=== PATIENT | female | born 1935 | race Caucasian/White ===

== ENCOUNTER 2017-07-09 13:44 | Inpatient (IN) ==
[2017-07-09 14:33] LABS: Basophils % 0.3 %; Eosinophils # 0.1 K/mcL (0.0-0.6); Eosinophils % 0.9 %; Hematocrit 35.8 % (35.3-44.9); Hemoglobin 11.7 g/dL (11.5-15.4); Immature Granulocytes % 0.5 % (0-4); Lymphocytes # 0.9 K/mcL (0.6-4.6); Lymphocytes % 9.1 %; Mean Corpuscular HGB Conc 32.7 g/dL (31.6-35.5); Mean Corpuscular Volume 94.7 fL (83.0-100.0); Mean Platelet Volume 9.5 fL (9.4-12.4); Monocytes # 0.6 K/mcL (0.0-1.3); Monocytes % 5.8 %; Neutrophils # 8.2 K/mcL (1.6-8.9); Platelet Count 394 K/mcL (140-400); Red Blood Count 3.78 M/mcL (3.82-4.97); Red Cell Distribution Width 13.3 % (11.5-14.5); Segmented Neutrophils % 83.4 %
--- NOTE | 2017-07-09 14:41 | Emergency Department Note ---
Disposition Clinical Impression: Pneumonia Qualifiers: Pneumonia type: due to unspecified organism Laterality: right Lung location: unspecified part of lung Qualified Code(s): J18.9 - Pneumonia, unspecified organism Chest pain Qualifiers: Chest pain type: unspecified Qualified Code(s): R07.9 - Chest pain, unspecified CKD (chronic kidney disease) Qualifiers: Chronic kidney disease stage: unspecified stage Qualified Code(s): N18.9 - Chronic kidney disease, unspecified Disposition: Home, Self-Care Condition: Fair SOB HPI - General Chief Complaint: ED Shortness of Breath/Dyspnea Stated Complaint: possible pneumonia Time Seen by Provider: 07/09/17 13:55 Source: patient, EMS Mode of arrival: ambulatory Limitations: no limitations Nursing Notes Reviewed: Yes Vital Signs Reviewed: Yes - History of Present Illness 81-year-old female with a history of COPD, hypertension, VT in the past with protein S deficiency since her evaluation of chest pain. Patient states that symptom onset was partially week ago. Notes lower chest pain worse with deep inspiration. States that she saw her primary care doctor approximately week ago his prescribed an antibiotic stating that she possibly had pneumonia. Patient states that she has 5 days and Levaquin with no benefit. No cough. No fevers. Patient has felt nauseous with vomiting. Patient states that her last INR was low. Patient denies any other symptoms. She reports that she has had her gallbladder removed. 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 - Related Data Home Medications Medication Instructions Recorded Confirmed HYDROcodone/Acet 10/325 mg [[place] 1 tab PO Q4HR PRN 07/09/17 07/10/17 10-325 mg] Levothyroxine [Synthroid] 50 mcg PO 0630 07/09/17 07/10/17 Losartan [Cozaar] 100 mg PO DAILY 07/09/17 07/10/17 Warfarin [Coumadin] 3 mg PO 1800 07/09/17 07/10/17 Citalopram Hydrobromide 1.5 tab PO DAILY 07/10/17 07/10/17 [Citalopram HBr] Meloxicam [Meloxicam] 1 tab PO BID 07/10/17 07/10/17 Metoprolol [Lopressor] 1.5 tab PO BID 07/10/17 07/10/17 levoFLOXacin [Levofloxacin] 1 tab PO DAILY 07/10/17 07/10/17 Allergies Allergy/AdvReac Type Severity Reaction Status Date / Time Erythromycin Base Allergy Mild Rash Verified 07/09/17 13:48 nitrofurantoin Allergy Mild Vomiting Verified 07/09/17 13:48 [From Macrobid] Oxycodone [From Percocet] Allergy Mild See Verified 07/09/17 13:48 Comments Sulfa (Sulfonamide Allergy Mild Hives Verified 07/09/17 13:48 Antibiotics) All systems ED: reviewed and negative except as stated. Constitutional: Reports: as per HPI. Denies: fever Eyes: Reports: as per HPI ENT ED: Reports: as per HPI Cardiovascular: Reports: as per HPI, chest pain Respiratory: Reports: as per HPI. Denies: cough, dyspnea Gastrointestinal: Reports: as per HPI, nausea, vomiting. Denies: abdominal pain Genitourinary: Reports: as per HPI Musculoskeletal: Reports: as per HPI Integumentary: Reports: as per HPI Neurological: Reports: as per HPI Psychiatric: Reports: as per HPI Endocrine: Reports: as per HPI Past Medical History - Past Medical History Medical history: Reports: COPD, fibromyalgia, hypertension, myocardial infarction, osteoporosis Surgical history: Reports: appendectomy, cholecystectomy, hysterectomy Psychiatric history: Reports: anxiety, depression MALTSTER history: Reports: no MALTSTER history - Social History Smoking Status: Former smoker Smokeless Tobacco Status: No Alcohol use: Reports: none Drug use: Reports: none Physical Exam - General Limitations: no limitations General appearance: alert, in no apparent distress - Head Head exam: atraumatic, normocephalic, normal inspection - Eye Eye exam: Present: normal appearance, EOMI - ENT ENT exam: normal exam, mucous membranes moist - Neck Neck exam: Present: normal inspection, trachea midline - Chest Chest inspection: Present: normal inspection, symmetric chest wall rise - Respiratory Respiratory exam: Present: normal lung sounds bilaterally. Absent: respiratory distress - Cardiovascular Cardiovascular exam: Present: normal rhythm, tachycardia. Absent: systolic murmur - Abdominal Exam Abdominal exam: Present: soft, Non-Tender. Absent: distention, guarding, rebound - Extremities Exam Extremities exam: Present: normal inspection. Absent: pedal edema - Back Exam Back exam: Present: normal inspection - Neurological Exam Neurological exam: Present: alert, oriented X3 - Skin Skin exam: Present: warm, dry, intact, normal color Course Course Narrative: Patient seen and examined. Patient appears enchondral. No respiratory distress. Patient is requiring 3 L nasal cannula. Patient states that she typically wears oxygen at night. Patient is tachycardic. Concerns of possible pulmonary embolism given the history as well as pleuritic component. Patient will get basic lab work chest x-ray and pain control. - Reevaluation(s) Reevaluation #1: Patient seen and examined. Patient appears to be resting comfortably. She was updated of plan of care. Time: 17:04 Vital Signs Pulse Rate 128 07/09/17 13:47 Respiratory Rate 24 07/09/17 13:47 Blood Pressure 136/96 07/09/17 13:47 O2 Sat by Pulse Oximetry 97 07/09/17 13:47 Temperature 98.2 F 07/10/17 11:10 Pulse Rate 120 07/10/17 11:10 Respiratory Rate 18 07/10/17 11:10 Blood Pressure 103/63 07/10/17 11:10 O2 Sat by Pulse Oximetry 96 07/10/17 11:10 Oxygen Delivery Oxygen Delivery Nasal Cannula Shortness of Breath/Dyspnea - [facility] Narrative Medical decision making narrative: 81-year-old female present for evaluation of chest pain and shortness of breath. Patient had a CT of the chest due to concerns of possible clotting given her history. Patient is on anticoagulation. Patient's CT of the chest reveals a possible pneumonia. Patient's been treated with Levaquin past with no significant benefit. Patient's labs reviewed. Patient will be admitted to hospital service for IV antibiotics and given to need monitoring. Patient does have chronic kidney disease and was hydrated - Lab Data Lab results reviewed: Yes I reviewed the patient's lab results. Result diagrams: 07/10/17 06:01 07/10/17 06:01 Lab Results 07/09/17 07/09/17 07/09/17 Range/Units 14:15 14:15 14:15 WBC 9.8 (4.3-11.1) K/mcL RBC 3.78 L (3.82-4.97) M/mcL Hgb 11.7 (11.5-15.4) g/dL Hct 35.8 (35.3-44.9) % MCV 94.7 (83.0-100.0) fL MCH 31.0 (28.0-33.3) pg MCHC 32.7 (31.6-35.5) g/dL RDW 13.3 (11.5-14.5) % Plt Count 394 (140-400) K/mcL MPV 9.5 (9.4-12.4) fL Immature Gran % 0.5 (0-4) % Seg Neutrophils % 83.4 % Lymphocytes % 9.1 % Monocytes % 5.8 % Eosinophils % 0.9 % Basophils % 0.3 % Neutrophils # 8.2 (1.6-8.9) K/mcL Lymphocytes # 0.9 (0.6-4.6) K/mcL Monocytes # 0.6 (0.0-1.3) K/mcL Eosinophils # 0.1 (0.0-0.6) K/mcL Basophils # 0.0 (0.0-0.2) K/mcL PT (9.4-12.1) Seconds INR Sodium (136-145) mEq/L Potassium (3.5-5.1) mEq/L Chloride (98-107) mEq/L Carbon Dioxide (23-29) mEq/L BUN (8-23) mg/dL Creatinine (0.60-1.20) mg/dL Est GFR ( Amer) (> 60) Est GFR (Non-Af Amer) (> 60) BUN/Creatinine Ratio (6-26) Glucose (70-105) mg/dL Calculated Osmolality (280-300) Lactic Acid (0.5-2.2) mmol/L Calcium (8.6-10.3) mg/dL Troponin I (< 0.04) ng/mL B-Natriuretic Peptide 92 (Less than 100) pg/mL Specimen Rejected Hemolyzed 07/09/17 07/09/17 07/09/17 Range/Units 14:45 14:45 14:45 WBC (4.3-11.1) K/mcL RBC (3.82-4.97) M/mcL Hgb (11.5-15.4) g/dL Hct (35.3-44.9) % MCV (83.0-100.0) fL MCH (28.0-33.3) pg MCHC (31.6-35.5) g/dL RDW (11.5-14.5) % Plt Count (140-400) K/mcL MPV (9.4-12.4) fL Immature Gran % (0-4) % Seg Neutrophils % % Lymphocytes % % Monocytes % % Eosinophils % % Basophils % % Neutrophils # (1.6-8.9) K/mcL Lymphocytes # (0.6-4.6) K/mcL Monocytes # (0.0-1.3) K/mcL Eosinophils # (0.0-0.6) K/mcL Basophils # (0.0-0.2) K/mcL PT (9.4-12.1) Seconds INR Sodium 135 L (136-145) mEq/L Potassium 4.5 (3.5-5.1) mEq/L Chloride 102 (98-107) mEq/L Carbon Dioxide 25 (23-29) mEq/L BUN 20 (8-23) mg/dL Creatinine 1.30 H (0.60-1.20) mg/dL Est GFR ( Amer) 48 L (> 60) Est GFR (Non-Af Amer) 39 L (> 60) BUN/Creatinine Ratio 15 (6-26) Glucose 102 (70-105) mg/dL Calculated Osmolality 283 (280-300) Lactic Acid 0.8 (0.5-2.2) mmol/L Calcium 9.1 (8.6-10.3) mg/dL Troponin I < 0.03 (< 0.04) ng/mL B-Natriuretic Peptide (Less than 100) pg/mL Specimen Rejected 07/09/17 Range/Units 14:45 WBC (4.3-11.1) K/mcL RBC (3.82-4.97) M/mcL Hgb (11.5-15.4) g/dL Hct (35.3-44.9) % MCV (83.0-100.0) fL MCH (28.0-33.3) pg MCHC (31.6-35.5) g/dL RDW (11.5-14.5) % Plt Count (140-400) K/mcL MPV (9.4-12.4) fL Immature Gran % (0-4) % Seg Neutrophils % % Lymphocytes % % Monocytes % % Eosinophils % % Basophils % % Neutrophils # (1.6-8.9) K/mcL Lymphocytes # (0.6-4.6) K/mcL Monocytes # (0.0-1.3) K/mcL Eosinophils # (0.0-0.6) K/mcL Basophils # (0.0-0.2) K/mcL PT 23.7 H (9.4-12.1) Seconds INR 2.2 Sodium (136-145) mEq/L Potassium (3.5-5.1) mEq/L Chloride (98-107) mEq/L Carbon Dioxide (23-29) mEq/L BUN (8-23) mg/dL Creatinine (0.60-1.20) mg/dL Est GFR ( Amer) (> 60) Est GFR (Non-Af Amer) (> 60) BUN/Creatinine Ratio (6-26) Glucose (70-105) mg/dL Calculated Osmolality (280-300) Lactic Acid (0.5-2.2) mmol/L Calcium (8.6-10.3) mg/dL Troponin I (< 0.04) ng/mL B-Natriuretic Peptide (Less than 100) pg/mL Specimen Rejected - Radiology Data Radiology results reviewed: Yes I reviewed the patient's radiology results. Chest X-Ray 07/09/17 13:56 IMPRESSION: 1. No acute cardiopulmonary findings. 2. A 1.6 cm nodular opacity in the right lateral mid to lower lung not well seen on the prior exam with some more linear opacity more inferiorly. Consider further evaluation with CT. 3. Chronic peripheral reticular opacities likely reflecting underlying fibrosis or interstitial lung process. D/ / 07/09/2017 14:41:57 Sandie Avila MD / bcarter Interpreting Provider: Sandie Avila MD - EKG Data EKG attestation: Yes I reviewed and interpreted this EKG. EKG shows normal: Reports: sinus rhythm Rate: Reports: tachycardia Rhythm: Reports: NSR [place]/QRS: Reports: normal Q waves: Reports: v1, v2 When compared to previous EKG there are: no significant changes Interpretation: Reports: unchanged when compared to prior tracing (date) S.B.A.R. - S.B.A.R. Situation: Demographics Background: Presenting Complaint Assessment: Vital Signs, Course and respsone to treatment, Patient/Family Expectation Recommendation: Barrier(s) to disposition, Recommendation based on pending studies, treatments, or consults Jamie Report Given to: Dr. Caitlin Ayala Repor Time: 17:03 Attestation Statement - Attestation Attestation: I examined this patient and my medical decision-making was reviewed with the Resident Physician. I agree with the documented findings, disposition and treatment plan as described except to the extent set forth below. 81 yo F BIB EMS with concerns of CP and SOB. 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 CT chest does not show PE but does show possible pna. Pt started on Abx and admitted for further care and eval.
[2017-07-09] MEDS ORDERED: 0.9 % Sodium Chloride 1,000 ML IVC ONE (14:46)
[2017-07-09] MEDS ORDERED: *HR* Morphine 2 MG/ML SYRINGE IVP ONE (14:53)
[2017-07-09] MEDS ORDERED: Ondansetron 4 MG/2 ML VIAL IVP ONE (14:53)
[2017-07-09 15:05] LABS: Calcium 9.1 mg/dL (8.6-10.3); Potassium 4.5 mEq/L (3.5-5.1)
[2017-07-09 15:11] LABS: INR 2.2; Prothrombin Time 23.7 Seconds (9.4-12.1)
[2017-07-09] MEDS ORDERED: Vancomycin 500 MG in D5% in Water 250 ML IVPB ONE (16:47)
[2017-07-09] MEDS ORDERED: Piperacillin/Tazobactam 3.375 GM in Water for inj. (sterile) 20 ML IVP ONE (16:48)
[2017-07-09] MEDS ORDERED: Naloxone 0.4 MG/ML INJ IVP PRN (20:34)
--- NOTE | 2017-07-09 20:47 | Internal Med History&Physical ---
<Carlos A Gotti J - Last Filed: 07/09/17 20:43> Date of Encounter: 07/09/17 Time of Encounter: 20:43 Assessment and Plan (1) Pneumonia Current visit: Yes Status: Acute Failed outpatient treatment for PNA. Presents today with dyspnea, chest pressure and chills. Was recently seen by PCP and diagnosed with PNA and treated with oral ATB (she is unsure which ATB either levaquin or augmentin). She denies any respiratory distress at this time and is resting comfortably on 2L NC. All vitals stable -start Vanc and Zosyn with failed outpatient treatment- narrow as clinically appropriate -obtain sputum culture -Continuous tele, and spo2 monitoring -Continuous respiratory support per NC, titrate to maintain spo2 >92% -CBCD, BMP in am -Duoneb q4h, albuterol q2h prn -prednisone 40mg dialy Qualifiers: Pneumonia type: due to unspecified organism Laterality: right Lung location: unspecified part of lung Qualified Code(s): J18.9 - Pneumonia, unspecified organism (2) Acute exacerbation of chronic obstructive pulmonary disease (COPD) Current visit: Yes Status: Acute (3) [id number] kidney injury Current visit: Yes Status: Acute Patient reports nausea and vomiting which began yesterday and extended into this morning. She has been able to tolerate oral intake due to nausea and vomiting which likely caused DEANNA. Gentle rehydration with IV fluids 0.9% normal saline at 75 mL per hour Qualifiers: Acute renal failure type: unspecified Chronic kidney disease stage: unspecified stage Qualified Code(s): N17.9 - Acute kidney failure, unspecified ; N18.9 - Chronic kidney disease, unspecified; N18.9 - Chronic kidney disease, unspecified (4) HTN (hypertension) Current visit: Yes Status: Acute History of hypertension. Systolic blood pressure in the 170s. Resume home antihypertensive medications. Start hydralazine 10 mg every 6 hours when necessary for SBP greater than 160 Qualifiers: Hypertension type: essential hypertension Qualified Code(s): I10 - Essential (primary) hypertension (5) Chest pain Current visit: Yes Status: Acute Qualifiers: Chest pain type: unspecified Qualified Code(s): R07.9 - Chest pain, unspecified Internal Medicine - H&P: HPI Chief complaint: chest pressure Admitted From: Home Plans for Post Hospital Care: Home History of present illness: Ms. Welch is a 81 year old female with a PMH of protein S deficiency, HTN, DC , COPD, aspergillosis in lungs, and osteoporosis. She presents to [facility] today with hypoxia, dyspnea, chest pressure, cough, and vomiting. She reports that the chest pressure and dyspnea has been going on for the last 5 days. The chest pressure is non-exertional, and without radiation. She reports that it is reproducible with inspiration. She reports seeing her PCP and was prescribed an oral ATB but is unsure which; she is thinking it is Levaquin or possibly Augmentin. She admits to chills, chest pressure, dyspnea, diaphoresis, and n/v. CT chest in ED reveals PNA in RLL as well as a 9mm spictulated nodule. Past Med Surg Social Fam HX - Past Medical History Medical history: COPD, fibromyalgia, hypertension, myocardial infarction, osteoporosis Psychiatric history: anxiety, depression - Past Surgical History Surgical History: appendectomy, cholecystectomy, hysterectomy - Social History Smoking Status: Former smoker Smokeless Tobacco Status: No Alcohol use: none Drug use: none - Additional Family History Additional family history: non-contributory Internal Medicine - H&P: Meds Citalopram [CeleXA] 40 mg PO DAILY 07/09/17 [History] HYDROcodone/Acet 10/325 mg [[place] 10-325 mg] 1 tab PO Q4HR PRN 07/09/17 [History ] Levothyroxine [Synthroid] 50 mcg PO 0630 07/09/17 [History] Losartan [Cozaar] 25 mg PO DAILY 07/09/17 [History] Warfarin [Coumadin] 3 mg PO 1800 07/09/17 [History] 3 Allergy/AdvReac Type Severity Reaction Status Date / Time Erythromycin Base Allergy Mild Rash Verified 07/09/17 13:48 nitrofurantoin Allergy Mild Vomiting Verified 07/09/17 13:48 [From Macrobid] Oxycodone [From Percocet] Allergy Mild See Verified 07/09/17 13:48 Comments Sulfa (Sulfonamide Allergy Mild Hives Verified 07/09/17 13:48 Antibiotics) All Systems PM: A 10-system review of systems was performed and is negative for pertinent findings except as documented above in the HPI. Review of systems: REVIEW OF SYSTEMS GENERAL: Negative for any fevers, or weight loss. Positive for N/V and chills NEUROLOGIC: Negative for any blurry vision, blind spots, double vision, facial asymmetry, dysphagia, dysarthria, hemiparesis, hemisensory deficits, vertigo, ataxia. HEENT: Negative for any head trauma, neck trauma, neck stiffness, photophobia, phonophobia, sinusitis, rhinitis. CARDIAC: Positive for chest pressure, dyspnea, diaphoresis, PULMONARY: Negative for any shortness of breath, wheezing, COPD, or TB exposure. GASTROINTESTINAL: Negative for any abdominal pain, nausea, vomiting, bright red blood per rectum, melena. GENITOURINARY: Negative for any dysuria, hematuria, incontinence. INTEGUMENTARY: Negative for any rashes, cuts, insect bites. RHEUMATOLOGIC: Negative for any joint pains, photosensitive rashes, history of vasculitis or kidney problems. HEMATOLOGIC: Negative for any abnormal bruising, frequent infections or bleeding. - Constitutional Vitals: Temp Pulse Resp BP Pulse Ox 97.7 F 94 18 171/84 99 07/09/17 19:30 07/09/17 19:30 07/09/17 19:30 07/09/17 19:30 07/09/17 19:30 General appearance: Present: cooperative, A&O X 3, no acute distress, answers questions appropriately - Head Head exam: Present: atraumatic, normocephalic - Neck Neck exam general surgery: Present: supple, trachea midline. Absent: lymphadenopathy - Respiratory Respiratory exam: Present: rhonchi (RLL ), wheezes (I&E wheezing BL lungs anterior and posterior). Absent: tachypnea - Cardiovascular Cardiovascular exam: Present: RRR, +S1, +S2. Absent: diastolic murmur, gallop, rubs, systolic murmur - GI/Abdominal GI/Abdominal exam: Present: normal bowel sounds, soft, no peritoneal signs. Absent: distended, tenderness - Extremities Exam Extremities exam: Present: warm, radial pulses palpable and symmetrical. Absent : calf tenderness, cyanotic, pedal edema - Neurological Exam Neurological exam: Present: alert, normal gait - Skin Skin exam: Present: dry, intact Internal Med - H&P Results - Labs CBC & Chem 7: 07/09/17 14:15 07/09/17 14:45 - EKG Data -: EKG Interpreted by Myself EKG shows normal: sinus rhythm Rate: tachycardia - Diagnostic Studies Chest x-ray Status: image reviewed by me Additional comments: 1. No acute cardiopulmonary findings. 2. A 1.6 cm nodular opacity in the right lateral mid to lower lung not well seen on the prior exam with some more linear opacity more inferiorly. Consider further evaluation with CT. 3. Chronic peripheral reticular opacities likely reflecting underlying fibrosis or interstitial lung process. CT scan - chest Status: image reviewed by me Additional comments: 1. No evidence of pulmonary embolic disease. 2. Moderately severe diffuse emphysematous changes. Focal subpleural opacification in the right lower lobe, increased compared to the previous study, likely representing an acute infectious or inflammatory process. Spiculated nodules measuring upwards of 9 mm is apparent and follow-up chest CT following therapy is recommended to ensure resolution. A follow-up CT in 3 months time would be reasonable. <Rosalind Lovett - Last Filed: 07/09/17 22:28> Date of Encounter: 07/09/17 Time of Encounter: 22:25 Internal Medicine - H&P: HPI History of present illness: Ms. Welch is a 81 year old female All Systems PM: A 10-system review of systems was performed and is negative for pertinent findings except as documented above in the HPI. - Constitutional Vitals: Temp Pulse Resp BP Pulse Ox 97.7 F 94 18 171/84 99 07/09/17 19:30 07/09/17 19:30 07/09/17 19:30 07/09/17 19:30 07/09/17 19:30 Internal Med - H&P Results - Labs CBC & Chem 7: 07/09/17 14:15 07/09/17 14:45 - Attending Attestation Patient is an 81y/o female admitted for acute respiratory distress secondary to RLL PNA and COPD exacerbation. Patient independently seen and examined at bedside. Resting comfortably in bed and saturating well on nasal cannula. Reports of being an every day smoker and is not read to quit at this time. Noted to be on oral abx for PNA however symptoms persisted which prompted her hospitalization Will continue broad spectrum IV abx, systemic steroids, bronchodilator support, O2 supplementation closely monitor O2 sat, goal O2 sat: 88-92% reports of not taking her antihypertensive medications at home, will restart home meds along with Hydralazine prn sbp>160 Reports of having protein S deficiency and on Coumadin for anticoagulation. INR within therapeutic range. Case discussed with YAQUELIN Gotti, I agree with his documented findings, assessment, and plan except as listed above
[2017-07-09] MEDS ORDERED: Vancomycin 500 MG in D5% in Water 250 ML IVPB SCH (21:00)
[2017-07-09] MEDS ORDERED: 0.9 % Sodium Chloride 1,000 ML IVC SCH (21:00)
[2017-07-09] MEDS: Ipratropium/Albuterol Neb 3 ML IH SCH ×2 (21:52→23:53)
[2017-07-09] MEDS: 0.9 % Sodium Chloride 1,000 ML IVC SCH (22:40)
[2017-07-09] MEDS: predniSONE 20 MG TABLET PO SCH (22:40)
[2017-07-09] MEDS ORDERED: Vancomycin 750 MG in D5% in Water 250 ML IVPB ONE (23:42)
[2017-07-10] MEDS ORDERED: MethylPREDNISolone 40 MG/ML VIAL IVP SCH
[2017-07-10] MEDS: Ipratropium/Albuterol Neb 3 ML IH SCH ×2 (03:30→08:18)
[2017-07-10] MEDS ORDERED: Piperacillin/Tazobactam 3.375 GM/200 ML BAG IVPB SCH (04:00)
[2017-07-10] MEDS: *HR* HYDROcodone/Acet 10/325 mg TABLET PO PRN ×3 (04:36→18:07)
[2017-07-10] MEDS: Ondansetron 4 MG/2 ML VIAL IVP PRN ×2 (04:37→18:07)
[2017-07-10] MEDS ORDERED: *HR* Morphine 2 MG/ML SYRINGE IVP ONE ×2 (05:11→05:31)
[2017-07-10] MEDS ORDERED: *HR* Morphine 2 MG/ML SYRINGE ONE (05:12)
[2017-07-10] MEDS ORDERED: *HR* Heparin 5,000 UNIT/ML VIAL SQ SCH (06:00)
[2017-07-10] MEDS ORDERED: *HR* Promethazine 25 MG/ML VIAL IVP ONE ×2 (06:23→06:34)
[2017-07-10] MEDS ORDERED: *HR* Promethazine 25 MG/ML VIAL ONE (06:23)
[2017-07-10 06:52] LABS: Calcium 8.8 mg/dL (8.6-10.3)
[2017-07-10 07:24] LABS: Hematocrit 34.7 % (35.3-44.9); Hemoglobin 11.1 g/dL (11.5-15.4); Mean Corpuscular Hemoglobin 30.8 pg (28.0-33.3); Mean Corpuscular Volume 96.4 fL (83.0-100.0); Mean Platelet Volume 9.9 fL (9.4-12.4); Platelet Count 367 K/mcL (140-400); Red Cell Distribution Width 13.3 % (11.5-14.5)
[2017-07-10] MEDS ORDERED: Vancomycin 500 MG in D5% in Water 250 ML IVPB SCH (09:00)
[2017-07-10 09:10] LABS: INR 2.1; Prothrombin Time 23.3 Seconds (9.4-12.1)
--- NOTE | 2017-07-10 09:39 | Electrocardiograph Report ---
[place] [id number] Test Date: 2017-07-09 Pat Name: Gloria Welch Department: 102 Room: 2A48 Gender: F Night Time Nanny: Emili : 1935 Requested By: Marcel Walker Order Number: [id number] Reading MD: Clement Small MD Measurements Intervals [place] Rate: 121 P: 74 WA: 153 QRS: 61 QRSD: 78 T: 64 QT: 318 QTc: 390 Interpretive Statements SINUS TACHYCARDIA BASELINE ARTIFACT Electronically Signed On 07-10-2017 9:37:22 EST by Clement Small MD
[2017-07-10] MEDS: predniSONE 20 MG TABLET PO SCH (09:50)
--- NOTE | 2017-07-10 10:02 | Internal Med Progress Note ---
Date of Encounter: 07/10/17 Time of Encounter: 09:59 - Assessment and plan (1) Acute exacerbation of chronic obstructive pulmonary disease (COPD) Status: Acute Assessment and plan: improved slightly. Continue IV steroids, empiric IV antibiotics, scheduled bronchodilators and supplemental oxygen as needed. Will change albuterol to levalbuterol due to persistent tachycardia. Patient does have home oxygen. Smoking cessation advised, patient will consider to cut down smoking. Declines nicotine transdermal patch in the hospital. (2) Pneumonia Status: Acute Assessment and plan: Chest x-ray shows possible right lower lobe pneumonia. Follow-up blood cultures. Continue broad-spectrum IV antibiotics. Supportive care and supplemental oxygen as needed. Lactic acid noted to be normal. Qualifiers: Pneumonia type: due to unspecified organism Laterality: right Lung location: lower lobe of lung Qualified Code(s): J18.1 - Lobar pneumonia, unspecified organism (3) Hypothyroidism Status: Chronic Assessment and plan: Continue levothyroxine. Qualifiers: Hypothyroidism type: unspecified Qualified Code(s): E03.9 - Hypothyroidism , unspecified (4) Chronic respiratory failure Status: Chronic Qualifiers: Respiratory failure complication: hypoxia Qualified Code(s): J96.11 - Chronic respiratory failure with hypoxia (5) Protein S deficiency Status: Chronic Assessment and plan: Noted to be on long-term anticoagulation with Coumadin. INR therapeutic. (6) Bfgnj-qn-wbbjexm kidney injury Status: Acute Assessment and plan: Improving. Likely related to underlying infection. Continue IV hydration for now. Qualifiers: Acute renal failure type: unspecified Chronic kidney disease stage: stage 3 (moderate) Qualified Code(s): N17.9 - Acute kidney failure, unspecified; N18.3 - Chronic kidney disease, stage 3 (moderate); N18.3 - Chronic kidney disease, stage 3 (moderate) (7) HTN (hypertension) Status: Chronic Qualifiers: Hypertension type: essential hypertension Qualified Code(s): I10 - Essential (primary) hypertension - Subjective Interval history: Reports improvement in chest tightness and shortness of breath; no palpitations , wheezing; does have some dyspnea and smoker's cough at baseline; continues to smoke 1 pack per day; no fever/chills; - Constitutional Vitals: Temp Pulse Resp BP Pulse Ox 97.4 F L 115 18 108/60 97 07/10/17 08:09 07/10/17 08:09 07/10/17 08:09 07/10/17 08:09 07/10/17 08:09 General appearance: Present: cachectic, cooperative, A&O X 3, no acute distress , answers questions appropriately - Respiratory Respiratory exam: Present: CTAB (coarse breath sounds B/L). Absent: accessory muscle use, rales, rhonchi, wheezes - Cardiovascular Cardiovascular exam: Present: RRR, +S1, +S2, tachycardia. Absent: diastolic murmur, gallop, rubs, systolic murmur - GI/Abdominal GI/Abdominal exam: Present: normal bowel sounds, soft, no peritoneal signs. Absent: distended, tenderness - Extremities Exam Extremities exam: Present: full ROM, warm, radial pulses palpable and symmetrical. Absent: calf tenderness, cyanotic, pedal edema - Neurological Exam Neurological exam: Present: CN II-XII intact, oriented X3, no focal deficits. Absent: pronater drift, facial droop, speech deficit - Skin Skin exam: Present: dry, intact Internal Medicine: Result - Labs CBC & Chem 7: 07/11/17 05:32 07/11/17 05:32 Labs: Short CBC 07/10/17 Range/Units 06:01 WBC 6.0 (4.3-11.1) K/mcL Hgb 11.1 L (11.5-15.4) g/dL Hct 34.7 L (35.3-44.9) % Plt Count 367 (140-400) K/mcL BMP 07/10/17 06:01 Sodium 135 L Potassium 4.0 Chloride 105 Carbon Dioxide 21 L BUN 18 Creatinine 1.11 Glucose 215 H Calcium 8.8 Cardiac Enzymes 07/10/17 Range/Units 06:01 Troponin I < 0.03 (< 0.04) ng/mL - ABG Interpretation ABG results: PT/INR, D-dimer PT 23.3 Seconds (9.4-12.1) H 07/10/17 08:46 Consult Discharge Plan - Plan Instructions: Pneumonia (DC) Additional Instructions: F/up with PCP in 1-2 weeks Referrals: Leonel Russo MD [Primary Care Provider] - Prescriptions: Ipratropium/Albuterol Neb [Duoneb] 3 ml IH Q6HR PRN 30 Days vial.neb PRN Reason: Shortness Of Breath/Wheezing Amoxicillin/Clavulanate [Augmentin] 500 mg PO BIDWM #10 tablet Budesonide/Formoterol 160/4.5 [Symbicort 160/4.5] 2 puff IH BIDR 30 Days hfa.aer.ad predniSONE [PredniSONE] 40 mg PO DAILY #10 tablet
--- NOTE | 2017-07-10 12:20 | Electrocardiograph Report ---
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
[2017-07-10] MEDS: 0.9 % Sodium Chloride 1,000 ML IVC SCH (14:53)
[2017-07-10] MEDS: Piperacillin/Tazobactam 3.375 GM/200 ML BAG IVPB SCH (15:21)
[2017-07-10] MEDS: Ipratropium Neb 0.5 MG NEBULIZER IH SCH ×3 (16:52→22:20)
[2017-07-10] MEDS: Levalbuterol Neb 1.25 MG/3 ML IH SCH ×3 (16:53→22:20)
[2017-07-10] MEDS ORDERED: Warfarin perPT PO PRN (18:00)
[2017-07-10] MEDS ORDERED: *HR* Warfarin 3 MG TABLET PO ONE (18:00)
[2017-07-10 18:49] LABS: Adenovirus Not Detected (Not Detect); Bordetella Pertussis Not Detected (Not Detect); Chlamydophila pneumoniae Not Detected (Not Detect); Coronavirus 229E Not Detected (Not Detect); Coronavirus HKU1 Not Detected (Not Detect); Coronavirus NL63 Not Detected (Not Detect); Coronavirus OC43 Not Detected (Not Detect); Human Metapneumovirus Not Detected (Not Detect); Human Rhinovirus/Enterovirus Not Detected (Not Detect); Influenza A Subtype 2009 H1 Not Detected (Not Detect); Influenza A Untypeable Not Detected (Not Detect); Influenza B Not Detected (Not Detect); Mycoplasma pneumoniae Not Detected (Not Detect); Parainfluenza Virus 1 Not Detected (Not Detect); Parainfluenza Virus 2 Not Detected (Not Detect); Parainfluenza Virus 3 Not Detected (Not Detect); Parainfluenza Virus 4 Not Detected (Not Detect); Respiratory Syncytial Virus Not Detected (Not Detect)
[2017-07-10] MEDS: Vancomycin 750 MG in D5% in Water 250 ML IVPB SCH (22:49)
[2017-07-11] MEDS: Piperacillin/Tazobactam 3.375 GM/200 ML BAG IVPB SCH ×3 (00:08→15:12)
[2017-07-11] MEDS ORDERED: Mag Hydrox/Al Hydrox/Simeth 30 ML UDC PO PRN (04:00)
[2017-07-11] MEDS: Levalbuterol Neb 1.25 MG/3 ML IH SCH ×4 (04:13→22:19)
[2017-07-11] MEDS: Ipratropium Neb 0.5 MG NEBULIZER IH SCH ×4 (04:13→22:19)
[2017-07-11 06:01] LABS: Basophils % 0.1 %; Eosinophils % 0.1 %; Hematocrit 29.7 % (35.3-44.9); Immature Granulocytes % 0.7 % (0-4); Lymphocytes # 1.4 K/mcL (0.6-4.6); Lymphocytes % 9.2 %; Mean Corpuscular HGB Conc 31.3 g/dL (31.6-35.5); Mean Corpuscular Hemoglobin 30.9 pg (28.0-33.3); Mean Corpuscular Volume 98.7 fL (83.0-100.0); Mean Platelet Volume 9.7 fL (9.4-12.4); Monocytes # 0.9 K/mcL (0.0-1.3); Monocytes % 6.2 %; Platelet Count 332 K/mcL (140-400); Red Blood Count 3.01 M/mcL (3.82-4.97); Red Cell Distribution Width 13.8 % (11.5-14.5); Segmented Neutrophils % 83.7 %
[2017-07-11 06:03] LABS: INR 2.3; Prothrombin Time 25.2 Seconds (9.4-12.1)
[2017-07-11 06:06] LABS: Hemoglobin 9.3 g/dL (11.5-15.4); Neutrophils # 12.6 K/mcL (1.6-8.9)
[2017-07-11 06:13] LABS: Calcium 8.5 mg/dL (8.6-10.3); Potassium 4.3 mEq/L (3.5-5.1)
[2017-07-11] MEDS: predniSONE 20 MG TABLET PO SCH (07:56)
[2017-07-11] MEDS: *HR* HYDROcodone/Acet 10/325 mg TABLET PO PRN ×3 (08:02→20:28)
[2017-07-11] MEDS: 0.9 % Sodium Chloride 1,000 ML IVC SCH ×2 (15:10→15:12)
[2017-07-11] MEDS ORDERED: *HR* Warfarin 2 MG TABLET PO ONE (18:00)
--- NOTE | 2017-07-11 18:12 | Internal Med Progress Note ---
Date of Encounter: 07/11/17 Time of Encounter: 12:40 - Assessment and plan (1) Acute exacerbation of chronic obstructive pulmonary disease (COPD) Status: Acute Assessment and plan: Improving. Continue to taper IV steroids, empiric IV antibiotics, scheduled bronchodilators and supplemental oxygen as needed. Leukocytosis is noted, likely due to use of IV steroids. Patient does have home oxygen. Smoking cessation advised, patient will consider to cut down smoking. Declines nicotine transdermal patch in the hospital. Physical and occupational therapy evaluation noted, recommend placement in inpatient rehabilitation. donor services manager on board. (2) Pneumonia Status: Acute Assessment and plan: Chest x-ray shows possible right lower lobe pneumonia. Follow-up blood cultures. Continue broad-spectrum IV antibiotics. Supportive care and supplemental oxygen as needed. Lactic acid noted to be normal. Qualifiers: Pneumonia type: due to unspecified organism Laterality: right Lung location: lower lobe of lung Qualified Code(s): J18.1 - Lobar pneumonia, unspecified organism (3) Hypothyroidism Status: Chronic Qualifiers: Hypothyroidism type: unspecified Qualified Code(s): E03.9 - Hypothyroidism , unspecified (4) Chronic respiratory failure Status: Chronic Qualifiers: Respiratory failure complication: hypoxia Qualified Code(s): J96.11 - Chronic respiratory failure with hypoxia (5) Protein S deficiency Status: Chronic (6) Jogmz-uw-ajfxvdv kidney injury Status: Acute Assessment and plan: Serum creatinine noted to be stable. Discontinue IV hydration. Qualifiers: Acute renal failure type: unspecified Chronic kidney disease stage: stage 3 (moderate) Qualified Code(s): N17.9 - Acute kidney failure, unspecified; N18.3 - Chronic kidney disease, stage 3 (moderate); N18.3 - Chronic kidney disease, stage 3 (moderate) (7) HTN (hypertension) Status: Chronic Assessment and plan: Blood pressure noted to be improving. Increase beta dickson. Heart rate better controlled today. Qualifiers: Hypertension type: essential hypertension Qualified Code(s): I10 - Essential (primary) hypertension - Subjective Interval history: Reports feeling better. Improved cough and shortness of breath. No fever, chills, nausea or vomiting. Able to participate in physical therapy. - Constitutional Vitals: Temp Pulse Resp BP Pulse Ox 97.9 F 113 18 108/45 92 07/11/17 15:39 07/11/17 15:39 07/11/17 16:22 07/11/17 15:39 07/11/17 16:22 General appearance: Present: cachectic, cooperative, A&O X 3, no acute distress , answers questions appropriately - Respiratory Respiratory exam: Present: CTAB, wheezes (Bilateral expiratory wheezing, improving). Absent: accessory muscle use, rales, rhonchi - Cardiovascular Cardiovascular exam: Present: RRR, +S1, +S2, tachycardia. Absent: diastolic murmur, gallop, rubs, systolic murmur - GI/Abdominal GI/Abdominal exam: Present: normal bowel sounds, soft, no peritoneal signs. Absent: distended, tenderness - Extremities Exam Extremities exam: Present: full ROM, warm, radial pulses palpable and symmetrical. Absent: calf tenderness, cyanotic, pedal edema Internal Medicine: Result - Labs CBC & Chem 7: 07/11/17 05:32 07/11/17 05:32 Labs: Short CBC 07/11/17 Range/Units 05:32 WBC 15.1 H D (4.3-11.1) K/mcL Hgb 9.3 L D (11.5-15.4) g/dL Hct 29.7 L (35.3-44.9) % Plt Count 332 (140-400) K/mcL Neutrophils # 12.6 H (1.6-8.9) K/mcL BMP 07/11/17 05:32 Sodium 138 Potassium 4.3 Chloride 109 H Carbon Dioxide 23 BUN 22 Creatinine 1.17 Glucose 131 H Calcium 8.5 L - ABG Interpretation ABG results: PT/INR, D-dimer PT 25.2 Seconds (9.4-12.1) H 07/11/17 05:32 Consult Discharge Plan - Plan Instructions: Pneumonia (DC) Additional Instructions: F/up with PCP in 1-2 weeks Referrals: Leonel Russo MD [Primary Care Provider] - Prescriptions: Ipratropium/Albuterol Neb [Duoneb] 3 ml IH Q6HR PRN 30 Days vial.neb PRN Reason: Shortness Of Breath/Wheezing Amoxicillin/Clavulanate [Augmentin] 500 mg PO BIDWM #10 tablet Budesonide/Formoterol 160/4.5 [Symbicort 160/4.5] 2 puff IH BIDR 30 Days hfa.aer.ad predniSONE [PredniSONE] 40 mg PO DAILY #10 tablet
[2017-07-11] MEDS: Vancomycin 750 MG in D5% in Water 250 ML IVPB SCH (22:32)
[2017-07-12] MEDS: Piperacillin/Tazobactam 3.375 GM/200 ML BAG IVPB SCH ×2 (00:05→08:11)
[2017-07-12] MEDS: Ondansetron 4 MG/2 ML VIAL IVP PRN (03:46)
[2017-07-12] MEDS: Levalbuterol Neb 1.25 MG/3 ML IH SCH ×2 (04:44→11:27)
[2017-07-12] MEDS: Ipratropium Neb 0.5 MG NEBULIZER IH SCH ×2 (04:44→11:27)
[2017-07-12 05:53] LABS: INR 1.9; Prothrombin Time 20.6 Seconds (9.4-12.1)
[2017-07-12] MEDS: predniSONE 20 MG TABLET PO SCH (08:11)
[2017-07-12] MEDS: 0.9 % Sodium Chloride 1,000 ML IVC SCH (10:45)
[2017-07-12 11:46] VITALS: BP 177/94
--- NOTE | 2017-07-12 13:06 | Discharge Summary ---
Date of Encounter: 07/12/17 Time of Encounter: 12:57 - Discharge Diagnosis (1) Acute exacerbation of chronic obstructive pulmonary disease (COPD) Priority: Primary Status: Acute (2) Pneumonia Priority: Primary Status: Acute Qualifiers: Pneumonia type: due to unspecified organism Laterality: right Lung location: lower lobe of lung Qualified Code(s): J18.1 - Lobar pneumonia, unspecified organism (3) Hypothyroidism Priority: Secondary Status: Chronic Qualifiers: Hypothyroidism type: unspecified Qualified Code(s): E03.9 - Hypothyroidism , unspecified (4) Chronic respiratory failure Priority: Secondary Status: Chronic Qualifiers: Respiratory failure complication: hypoxia Qualified Code(s): J96.11 - Chronic respiratory failure with hypoxia (5) Protein S deficiency Priority: Secondary Status: Chronic (6) Pmsgi-cc-djmveqv kidney injury Priority: Primary Status: Acute Qualifiers: Acute renal failure type: unspecified Chronic kidney disease stage: stage 3 (moderate) Qualified Code(s): N17.9 - Acute kidney failure, unspecified; N18.3 - Chronic kidney disease, stage 3 (moderate); N18.3 - Chronic kidney disease, stage 3 (moderate) (7) HTN (hypertension) Priority: Secondary Status: Chronic Qualifiers: Hypertension type: essential hypertension Qualified Code(s): I10 - Essential (primary) hypertension - Discharge Medications Prescriptions: Ipratropium/Albuterol Neb [Duoneb] 3 ml IH Q6HR PRN 30 Days vial.neb PRN Reason: Shortness Of Breath/Wheezing Amoxicillin/Clavulanate [Augmentin] 500 mg PO BIDWM #10 tablet Budesonide/Formoterol 160/4.5 [Symbicort 160/4.5] 2 puff IH BIDR 30 Days hfa.aer.ad predniSONE [PredniSONE] 40 mg PO DAILY #10 tablet Home Medications: HYDROcodone/Acet 10/325 mg [[place] 10-325 mg] 1 tab PO Q4HR PRN 07/09/17 [History ] Levothyroxine [Synthroid] 50 mcg PO 0630 07/09/17 [History] Losartan [Cozaar] 100 mg PO DAILY 07/09/17 [History] Warfarin [Coumadin] 3 mg PO 1800 07/09/17 [History] Citalopram Hydrobromide [Citalopram HBr] 1.5 tab PO DAILY 07/10/17 [History] Meloxicam 1 tab PO BID 07/10/17 [History] Metoprolol [Lopressor] 1.5 tab PO BID 07/10/17 [History] Amoxicillin/Clavulanate [Augmentin] 500 mg PO BIDWM #10 tablet 07/12/17 [Rx] Budesonide/Formoterol 160/4.5 [Symbicort 160/4.5] 2 puff IH BIDR 30 Days hfa.aer.ad 07/12/17 [Rx] Ipratropium/Albuterol Neb [Duoneb] 3 ml IH Q6HR PRN 30 Days vial.neb 07/12/17 [ Rx] predniSONE [PredniSONE] 40 mg PO DAILY #10 tablet 07/12/17 [Rx] Allergies/Adverse Reactions: 3 Allergy/AdvReac Type Severity Reaction Status Date / Time Erythromycin Base Allergy Mild Rash Verified 07/09/17 13:48 nitrofurantoin Allergy Mild Vomiting Verified 07/09/17 13:48 [From Macrobid] Oxycodone [From Percocet] Allergy Mild See Verified 07/09/17 13:48 Comments Sulfa (Sulfonamide Allergy Mild Hives Verified 07/09/17 13:48 Antibiotics) Procedures/tests Complete & Pending: Procedures Performed prior 72 hours Category Date Time Status EKG [ECG 12 lead ECG] [ECG] Stat Y 07/10/17 05:23 Completed Date of admission: 07/09/17 20:34 Primary care physician: Leonel Russo MD Consults: 07/09/17 21:22 Consult to Nutrition [CONS] Routine Comment: Consulting Provider: NUTRITION Reason for Dietary Consult: MST Score 07/10/17 11:03 Consult to Occupational Therapy [CONS] Routine Comment: Evaluate, develop and implement POC Reason for Consult: wkns Consult to Physical Therapy [CONS] Routine Comment: Evaluate, develop and implement POC Reason for Consult: wkns Discharging clinician: Ashli Cardenas Anticipated date of discharge: 07/12/17 - Patient Status Disposition: Home Health Service Condition: Fair Functional capacity at discharge: uses cane/walker Overall status at discharge: patient is progressing back to baseline - Discharge Instructions Instructions: Pneumonia (DC) Follow Up With: Leonel Russo MD [Primary Care Provider] - Additional Instructions: F/up with PCP in 1-2 weeks - Diet and Activity Activity: as per physical therapy, wear oxygen at all times Diet: low fat, low cholesterol, low salt diet Hospital course: Ms. Welch is a 81 year old female with chronic smoking history and COPD, who was admitted with worsening cough, weakness and shortness of breath. CT chest showed no evidence of pulmonary embolism, showed right lower lobe infectious process. Patient was noted to have acute exacerbation of COPD and was started on IV steroids, empiric IV antibiotics, bronchodilators and supplemental oxygen. 2 sets of blood cultures remained negative. Patient improved significantly on this regimen. She was advised regarding smoking cessation multiple times and she is motivated to consider cutting down as an outpatient. She did not require nicotine patch while in the hospital. Patient also had mild acute kidney injury at the time of admission likely due to dehydration, which responded to IV hydration. Her blood pressure was noted to be uncontrolled and home dose of losartan is being increased. Physical and occupational therapy evaluation was completed and recommended placement in inpatient rehabilitation, which patient has declined. She is being discharged with home health services. She does have home oxygen. - Time Spent with Patient Total time spent providing and/or coordinating discharge services: Greater than 30 minutes (40 min) - Constitutional Vitals: Temp Pulse Resp BP Pulse Ox 98 F 85 17 177/94 95 07/12/17 11:38 07/12/17 11:38 07/12/17 11:38 07/12/17 11:38 07/12/17 11:28 General appearance: Present: cachectic, cooperative, A&O X 3, no acute distress , answers questions appropriately - Cardiovascular Cardiovascular exam: Present: RRR, +S1, +S2. Absent: diastolic murmur, gallop, rubs, systolic murmur
--- NOTE | 2017-07-12 13:13 | Physician Discharge Referral ---
Home Health/Hosp Referral Info Transfer to: Home Health Attending Provider: Ashli Cardenas Provider in Charge Post Discharge: PCP - Diagnosis (1) Acute exacerbation of chronic obstructive pulmonary disease (COPD) Priority: Primary Status: Acute (2) Pneumonia Priority: Primary Status: Acute (3) Hypothyroidism Priority: Secondary Status: Chronic (4) Chronic respiratory failure Priority: Secondary Status: Chronic (5) Protein S deficiency Priority: Secondary Status: Chronic (6) Hdknv-uw-djmdlyd kidney injury Priority: Primary Status: Acute (7) HTN (hypertension) Priority: Secondary Status: Chronic - Respiratory Orders Oxygen / L per min (2L/min via [place]) Smoking Cessation: Smoking cessation has been advised. For more information, call the [employer] Tobacco Quit Line at 0-472-FZBS-NOW. - Diet/Nutrition Diet/Nutrition Orders: No Added Salt (TELLY), Cardiac - Activity Activity Orders: Ambulate, Walker - Services Needed Following services are medically necessary services: Nursing, Physical Therapy, Occupational Therapy - Transfer Medications Prescriptions: Amoxicillin/Clavulanate [Augmentin] 500 mg PO BIDWM #10 tablet predniSONE [PredniSONE] 40 mg PO DAILY #10 tablet Home Medications: HYDROcodone/Acet 10/325 mg [[place] 10-325 mg] 1 tab PO Q4HR PRN 07/09/17 [History ] Levothyroxine [Synthroid] 50 mcg PO 0630 07/09/17 [History] Losartan [Cozaar] 100 mg PO DAILY 07/09/17 [History] Warfarin [Coumadin] 3 mg PO 1800 07/09/17 [History] Citalopram Hydrobromide [Citalopram HBr] 1.5 tab PO DAILY 07/10/17 [History] Meloxicam 1 tab PO BID 07/10/17 [History] Metoprolol [Lopressor] 1.5 tab PO BID 07/10/17 [History] Amoxicillin/Clavulanate [Augmentin] 500 mg PO BIDWM #10 tablet 07/12/17 [Rx] predniSONE [PredniSONE] 40 mg PO DAILY #10 tablet 07/12/17 [Rx] Allergies/Adverse Reactions: 3 Allergy/AdvReac Type Severity Reaction Status Date / Time Erythromycin Base Allergy Mild Rash Verified 07/09/17 13:48 nitrofurantoin Allergy Mild Vomiting Verified 07/09/17 13:48 [From Macrobid] Oxycodone [From Percocet] Allergy Mild See Verified 07/09/17 13:48 Comments Sulfa (Sulfonamide Allergy Mild Hives Verified 07/09/17 13:48 Antibiotics) Certification: Further, I certify that my clinical findings support that this patient is homebound (i.e. absences from home require considerable and taxing effort and are for medical reasons or confucianism services or infrequently or short duration when for other reasons) because: Homebound Reason: Patient requires assistance of a person or device to safely leave home, Severity of cardiac or pulmonary status limits activity tolerance Attestation: My signature below is to certify that this patient is under my care and that I, or nurse practitioner, or a physician's pharmacy technician assistant working with me, has a face-to -face encounter with this patient.
[2017-07-12] MEDS ORDERED: Aminoglycoside Consult 1 EACH MC ONE (14:29)
[2017-07-12] MEDS ORDERED: *HR* Warfarin 3 MG TABLET PO ONE (18:00)
[2017-07-12] MEDS ORDERED: Vancomycin 1,000 MG in D5% in Water 250 ML IVPB SCH (22:00)
== END 2017-07-12 14:30 | disposition home health service (06) | DRG 190 ==
LOC: EMEROO 13:44 → 2ANU 13:44 → SUATTDRO 20:34
PROVIDERS: ADMIT Internal Medicine; ATTEND Internal Medicine

== ENCOUNTER 2018-01-17 11:26 | Inpatient (IN) ==
[2018-01-17] MEDS ORDERED: Ondansetron 4 MG/2 ML VIAL IVP PRN ×2 (11:31→21:22)
--- NOTE | 2018-01-17 11:46 | Emergency Department Note ---
Disposition Clinical Impression: Acute colitis Acute gastritis Qualifiers: Gastritis type: unspecified gastritis Disposition: Admitted As Inpatient Time of Disposition: 13:21 General Adult HPI - General Chief complaint: ED Abdominal Pain Stated complaint: Abdominal pain Time Seen by Provider: 01/17/18 11:30 Source: patient, EMS Mode of arrival: EMS Limitations: no limitations Nursing Notes Reviewed: Yes Vital Signs Reviewed: Yes - History of Present Illness HPI Narrative: 82 yo female who presents to the emergency department via EMS with the complaint of abdominal pain over the last 5 days. She has been vomiting from this pain and has been unable to keep down food, liquids, medications. She is on warfarin and has admitted to some black stools which she was supposed to receive a colonoscopy for at some point in the future. She had a normal INR on Saturday, but was supratherapeutic prior to this at 3. Currently she is complaining of generalized abdominal pain that does not radiate into her chest. She feels short of breath, but states that she is on 2 L of oxygen at home. She denies fever, chills, recent illness. - Related Data Home Medications Medication Instructions Recorded Confirmed RX: HYDROcodone/Acet 10/325 mg 1 tab PO Q4HR PRN 07/09/17 07/10/17 [[place] 10-325 mg] RX: Levothyroxine [Synthroid] 50 mcg PO 0630 07/09/17 07/10/17 RX: Losartan [Cozaar] 100 mg PO DAILY 07/09/17 07/10/17 RX: Warfarin [Coumadin] 3 mg PO 1800 07/09/17 07/10/17 RX: Citalopram Hydrobromide 1.5 tab PO DAILY 07/10/17 07/10/17 [Citalopram HBr] RX: Meloxicam 1 tab PO BID 07/10/17 07/10/17 RX: Metoprolol [Lopressor] 1.5 tab PO BID 07/10/17 07/10/17 Previous Rx's Medication Instructions Recorded Amoxicillin/Clavulanate [Augmentin] 500 mg PO BIDWM #10 tablet 07/12/17 Budesonide/Formoterol 160/4.5 2 puff IH BIDR 30 Days hfa.aer.ad 07/12/17 [Symbicort 160/4.5] Ipratropium/Albuterol Neb [Duoneb] 3 ml IH Q6HR PRN 30 Days vial.neb 07/12/17 RX: predniSONE [PredniSONE] 40 mg PO DAILY #10 tablet 07/12/17 Allergies Allergy/AdvReac Type Severity Reaction Status Date / Time Erythromycin Base Allergy Mild Rash Verified 07/09/17 13:48 nitrofurantoin Allergy Mild Vomiting Verified 07/09/17 13:48 [From Macrobid] Oxycodone [From Percocet] Allergy Mild See Verified 07/09/17 13:48 Comments Sulfa (Sulfonamide Allergy Mild Hives Verified 07/09/17 13:48 Antibiotics) All systems ED: reviewed and negative except as stated. Review of Systems: As Per HPI Constitutional: Reports: weakness. Denies: fever, chills Cardiovascular: Reports: dyspnea on exertion. Denies: chest pain, palpitations Respiratory: Reports: dyspnea. Denies: cough, wheezes Gastrointestinal: Reports: abdominal pain, nausea, vomiting, melena. Denies: diarrhea, hematemesis Genitourinary: Denies: dysuria, frequency, hematuria, discharge Musculoskeletal: Reports: as per HPI Past Medical History - Past Medical History Attestation: Yes The following information was validated with the patient. Medical history: Reports: COPD, fibromyalgia, hypertension, myocardial infarction, osteoporosis Surgical history: Reports: appendectomy, cholecystectomy, hysterectomy Psychiatric history: Reports: anxiety, depression PATTERN TECHNICIAN history: Reports: no PATTERN TECHNICIAN history - Social History Smoking Status: Former smoker Smokeless Tobacco Status: No Alcohol use: Reports: none Drug use: Reports: none Physical Exam Patient is very thin. She appears visibly uncomfortable. Lying on the right side and holding stomach. Repeated complaints of nausea. Tender in all quadrants of abdomen, without rebound, rigidity, or distention of her abdomen. There is no pain to palpation of her chest. She sounds tachycardic on exam with loud heart sounds. There are end expiratory wheezes when she agrees without rales or rhonchi. Rectal exam was done. External hemorrhoids were visible and there was stool visible externally. No internal hemorrhoids felt. Stool sample has been sent to be tested by Hemoccult. Nurse Lorri Perez was there to witness exam. - General Limitations: no limitations General appearance: alert, in distress - Head Head exam: atraumatic, normocephalic, normal inspection - Eye Eye exam: Present: normal appearance, PERRL - Neck Neck exam: Present: normal inspection. Absent: tenderness - Chest Chest inspection: Present: normal inspection, symmetric chest wall rise. Absent : tenderness - Respiratory Respiratory exam: Present: wheezes. Absent: respiratory distress, stridor - Cardiovascular Cardiovascular exam: Present: normal rhythm, tachycardia, normal heart sounds - Abdominal Exam Abdominal exam: Present: tenderness. Absent: distention, guarding, rigidity Abdominal tenderness: Present: diffuse, severe - Rectal Exam [employer] Officer present during exam: Yes Rectal exam: Present: normal rectal tone, hemorrhoids (External). Absent: tenderness - Extremities Exam Extremities exam: Present: normal inspection, full ROM. Absent: pedal edema Course Vital Signs Temperature 98.5 F 01/17/18 11:46 Pulse Rate 118 01/17/18 11:46 Respiratory Rate 18 01/17/18 11:46 Blood Pressure 186/133 01/17/18 11:46 O2 Sat by Pulse Oximetry 98 01/17/18 11:46 Temperature 98.5 F 01/17/18 11:46 Pulse Rate 104 01/17/18 13:00 Respiratory Rate 18 01/17/18 13:00 Blood Pressure 176/102 01/17/18 13:00 O2 Sat by Pulse Oximetry 97 01/17/18 13:00 Oxygen Delivery Oxygen Delivery Room Air Medical Decision Making - [facility] Narrative Medical decision making narrative: Patient on warfarin with black stools complaining of abdominal pain and tachycardic on exam. We will evaluate for blood loss anemia, ACS, GI bleed, sepsis. CBC, BMP, lipase, hepatic panel, troponin, blood culture, lactic, CT abdomen noncontrast ordered. EKG ordered. Type and screen sent in case of blood transfusion necessity, low bolused with fluids at this point. Zofran ordered for nausea. 1310 - pt re-evaluated, she is resting comfortably in bed. She is still mildly tachycardic and hypertensive at this time. Labs returned and showed no signs of anemia, pancreatitis, liver disease. CT scan showed acute gastritis and colitis. Fecal hemoccult was positive. Will place the call out to the hospitalist. 1317 - Spoke with Dr. Duncan who has agreed to accept the patient. He agrees with placing the patient on Cipro and Flagyl at this time. - Medical Records Medical records reviewed: Yes I reviewed the patient's medical records. - Lab Data Lab results reviewed: Yes I reviewed the patient's lab results. Result diagrams: 01/17/18 11:48 01/17/18 11:48 Lab Results 01/17/18 01/17/18 01/17/18 Range/Units 11:33 11:48 11:48 WBC 10.5 (4.3-11.1) K/mcL RBC 3.83 (3.82-4.97) M/mcL Hgb 12.0 (11.5-15.4) g/dL Hct 37.3 (35.3-44.9) % MCV 97.4 (83.0-100.0) fL MCH 31.3 (28.0-33.3) pg MCHC 32.2 (31.6-35.5) g/dL RDW 13.5 (11.5-14.5) % Plt Count 372 (140-400) K/mcL MPV 10.0 (9.4-12.4) fL Immature Gran % 0.2 (0-4) % Seg Neutrophils % 78.5 % Lymphocytes % 13.5 % Monocytes % 6.5 % Eosinophils % 0.8 % Basophils % 0.5 % Neutrophils # 8.2 (1.6-8.9) K/mcL Lymphocytes # 1.4 (0.6-4.6) K/mcL Monocytes # 0.7 (0.0-1.3) K/mcL Eosinophils # 0.1 (0.0-0.6) K/mcL Basophils # 0.1 (0.0-0.2) K/mcL PT 28.3 H (9.4-12.1) Seconds INR 2.5 APTT 46.8 H (26.0-36.0) Seconds Sodium (136-145) mEq/L Potassium (3.5-5.1) mEq/L Chloride (98-107) mEq/L Carbon Dioxide (23-29) mEq/L BUN (8-23) mg/dL Creatinine (0.60-1.20) mg/dL Est GFR ( Amer) (> 60) Est GFR (Non-Af Amer) (> 60) BUN/Creatinine Ratio (6-26) Glucose (70-105) mg/dL Calculated Osmolality (280-300) Lactic Acid (0.5-2.2) mmol/L Calcium (8.6-10.3) mg/dL Total Bilirubin (0.3-1.0) mg/dL Direct Bilirubin (0.0-0.2) mg/dL Indirect Bilirubin (0.0-1.2) mg/dL AST (13-39) Units/L ALT (7-52) Units/L Alkaline Phosphatase (34-104) Units/L Troponin I (< 0.04) ng/mL Serum Total Protein (6.4-8.9) g/dL Albumin (3.5-5.7) g/dL Globulin (2.4-3.5) g/dL Albumin/Globulin Ratio (1.1-2.2) Lipase (11-82) Units/L Stool Occult Bld Scrn Positive A (Negative) Blood Type Antibody Screen 01/17/18 01/17/18 01/17/18 Range/Units 11:48 11:48 11:50 WBC (4.3-11.1) K/mcL RBC (3.82-4.97) M/mcL Hgb (11.5-15.4) g/dL Hct (35.3-44.9) % MCV (83.0-100.0) fL MCH (28.0-33.3) pg MCHC (31.6-35.5) g/dL RDW (11.5-14.5) % Plt Count (140-400) K/mcL MPV (9.4-12.4) fL Immature Gran % (0-4) % Seg Neutrophils % % Lymphocytes % % Monocytes % % Eosinophils % % Basophils % % Neutrophils # (1.6-8.9) K/mcL Lymphocytes # (0.6-4.6) K/mcL Monocytes # (0.0-1.3) K/mcL Eosinophils # (0.0-0.6) K/mcL Basophils # (0.0-0.2) K/mcL PT (9.4-12.1) Seconds INR APTT (26.0-36.0) Seconds Sodium 135 L (136-145) mEq/L Potassium 4.3 (3.5-5.1) mEq/L Chloride 103 (98-107) mEq/L Carbon Dioxide 23 (23-29) mEq/L BUN 37 H (8-23) mg/dL Creatinine 1.17 (0.60-1.20) mg/dL Est GFR ( Amer) 54 L (> 60) Est GFR (Non-Af Amer) 44 L (> 60) BUN/Creatinine Ratio 32 H (6-26) Glucose 140 H (70-105) mg/dL Calculated Osmolality 291 (280-300) Lactic Acid 1.6 (0.5-2.2) mmol/L Calcium 9.3 (8.6-10.3) mg/dL Total Bilirubin 0.5 (0.3-1.0) mg/dL Direct Bilirubin 0.0 (0.0-0.2) mg/dL Indirect Bilirubin 0.5 (0.0-1.2) mg/dL AST 16 (13-39) Units/L ALT 10 (7-52) Units/L Alkaline Phosphatase 93 (34-104) Units/L Troponin I < 0.03 (< 0.04) ng/mL Serum Total Protein 7.3 (6.4-8.9) g/dL Albumin 4.0 (3.5-5.7) g/dL Globulin 3.3 (2.4-3.5) g/dL Albumin/Globulin Ratio 1.2 (1.1-2.2) Lipase 10 L (11-82) Units/L Stool Occult Bld Scrn (Negative) Blood Type O POSITIVE Antibody Screen NEGATIVE - Radiology Data Radiology results reviewed: Yes I reviewed the patient's radiology results. - EKG Data EKG #1 EKG attestation: Yes I reviewed and interpreted this EKG. EKG results narrative: 1135 - ventricular rate 121 bpm, [place] interval 146 MS, QRS duration 80 MS, QT/QTC ratio 310/382 MS, normal axis. Sinus tachycardia with moderate ST depression likely due to some demand ischemia. No other signs of ischemia present on this exam.
[2018-01-17 12:07] LABS: Basophils # 0.1 K/mcL (0.0-0.2); Basophils % 0.5 %; Eosinophils # 0.1 K/mcL (0.0-0.6); Eosinophils % 0.8 %; Hematocrit 37.3 % (35.3-44.9); Immature Granulocytes % 0.2 % (0-4); Lymphocytes # 1.4 K/mcL (0.6-4.6); Lymphocytes % 13.5 %; Mean Corpuscular HGB Conc 32.2 g/dL (31.6-35.5); Mean Corpuscular Hemoglobin 31.3 pg (28.0-33.3); Mean Corpuscular Volume 97.4 fL (83.0-100.0); Monocytes # 0.7 K/mcL (0.0-1.3); Monocytes % 6.5 %; Neutrophils # 8.2 K/mcL (1.6-8.9); Platelet Count 372 K/mcL (140-400); Red Blood Count 3.83 M/mcL (3.82-4.97); Red Cell Distribution Width 13.5 % (11.5-14.5); Segmented Neutrophils % 78.5 %
[2018-01-17] MEDS ORDERED: *HR* FentaNYL (PF) 100 MCG/2 ML VIAL IVP ONE (12:10)
[2018-01-17] MEDS: 0.9 % Sodium Chloride 1,000 ML IVC SCH ×2 (12:11→14:04)
[2018-01-17 12:13] LABS: INR 2.5; Prothrombin Time 28.3 Seconds (9.4-12.1)
[2018-01-17 12:15] LABS: Activated Partial Thrombo Time 46.8 Seconds (26.0-36.0)
[2018-01-17 12:25] LABS: Troponin I < 0.03 ng/mL (< 0.04)
[2018-01-17 12:27] LABS: Alanine Aminotransferase 10 Units/L (7-52); Albumin/Globulin Ratio 1.2 (1.1-2.2); Alkaline Phosphatase 93 Units/L (34-104); Aspartate Amino Transferase 16 Units/L (13-39); BUN/Creatinine Ratio 32 (6-26); Bilirubin,Indirect 0.5 mg/dL (0.0-1.2); Bilirubin,Total 0.5 mg/dL (0.3-1.0); Blood Urea Nitrogen 37 mg/dL (8-23); Calcium 9.3 mg/dL (8.6-10.3); Carbon Dioxide 23 mEq/L (23-29); Chloride 103 mEq/L (98-107); Globulin 3.3 g/dL (2.4-3.5); Glucose 140 mg/dL (70-105); Lipase 10 Units/L (11-82); Osmolality,Calculated 291 (280-300); Potassium 4.3 mEq/L (3.5-5.1); Sodium 135 mEq/L (136-145); Total Protein 7.3 g/dL (6.4-8.9); eGFR For African Americans 54 (> 60); eGFR For Non-African Americans 44 (> 60)
[2018-01-17] MEDS ORDERED: MetroNIDAZOLE 500 MG/100 ML 500 MG/100 ML BAG IVPB ONE (13:14)
--- NOTE | 2018-01-17 14:19 | Emergency Department Note ---
Disposition Clinical Impression: Acute colitis Acute gastritis Qualifiers: Gastritis type: unspecified gastritis Gastritis bleeding: presence of bleeding unspecified Qualified Code(s): K29.00 - Acute gastritis without bleeding Disposition: Admitted As Inpatient Condition: Good Abdominal Pain HPI - General Chief Complaint: ED Abdominal Pain Stated Complaint: Abdominal pain Time Seen by Provider: 01/17/18 11:30 Source: patient, EMS Mode of arrival: EMS Limitations: no limitations Nursing Notes Reviewed: Yes Vital Signs Reviewed: Yes - History of Present Illness Pain Scale: 0 - Related Data Home Medications Medication Instructions Recorded Confirmed HYDROcodone/Acet 10/325 mg [[place] 1 tab PO Q4HR PRN 07/09/17 01/17/18 10-325 mg] Levothyroxine [Synthroid] 50 mcg PO 0630 07/09/17 01/17/18 Losartan [Cozaar] 100 mg PO DAILY 07/09/17 01/17/18 Citalopram Hydrobromide 60 mg PO DAILY 07/10/17 01/17/18 [Citalopram HBr] Meloxicam 7.5 tab PO BID 07/10/17 01/17/18 Metoprolol [Lopressor] 150 mg PO BID 07/10/17 01/17/18 Previous Rx's Medication Instructions Recorded Acetaminophen [Tylenol] 650 mg PO Q6HR PRN tablet 01/19/18 Ciprofloxacin [Cipro] 500 mg PO BID 7 Days #14 tablet 01/19/18 Warfarin [Coumadin] 3 mg PO 1800 #30 01/19/18 metroNIDAZOLE [Flagyl] 500 mg PO Q8HR 7 Days #21 tablet 01/19/18 Allergies Allergy/AdvReac Type Severity Reaction Status Date / Time Erythromycin Base Allergy Mild Rash Verified 01/17/18 14:02 nitrofurantoin Allergy Mild Vomiting Verified 01/17/18 14:02 [From Macrobid] Oxycodone [From Percocet] Allergy Mild See Verified 01/17/18 14:02 Comments Sulfa (Sulfonamide Allergy Mild Hives Verified 01/17/18 14:02 Antibiotics) Constitutional: Reports: weakness. Denies: fever, chills Cardiovascular: Reports: dyspnea on exertion. Denies: chest pain, palpitations Respiratory: Reports: dyspnea. Denies: cough, wheezes Gastrointestinal: Reports: abdominal pain, nausea, vomiting, melena. Denies: diarrhea, hematemesis Genitourinary: Denies: dysuria, frequency, hematuria, discharge Musculoskeletal: Reports: as per HPI Abdominal Pain PMH - Past Medical History Medical history: Reports: COPD, fibromyalgia, hypertension, myocardial infarction, osteoporosis Female Surgical History: Reports: appendectomy, cholecystectomy, hysterectomy, other PRE CODER history: Reports: no PRE CODER history Psychiatric history: Reports: anxiety, depression - Social History Smoking status: Former smoker Alcohol use: Reports: none Drug use: Reports: none Physical Exam - General Limitations: no limitations General appearance: alert, in distress Course Vital Signs Temperature 98.5 F 01/17/18 11:46 Pulse Rate 118 01/17/18 11:46 Respiratory Rate 18 01/17/18 11:46 Blood Pressure 186/133 01/17/18 11:46 O2 Sat by Pulse Oximetry 98 01/17/18 11:46 Temperature 97.6 F 01/19/18 14:42 Pulse Rate 89 01/19/18 14:42 Respiratory Rate 14 01/19/18 14:42 Blood Pressure 94/53 01/19/18 14:42 O2 Sat by Pulse Oximetry 90 01/19/18 14:42 Oxygen Delivery Oxygen Delivery Room Air Abdominal Pain - Lab Data Result diagrams: 01/18/18 07:38 01/18/18 07:38 Lab Results 01/17/18 01/17/18 01/17/18 Range/Units 11:33 11:48 11:48 WBC 10.5 (4.3-11.1) K/mcL RBC 3.83 (3.82-4.97) M/mcL Hgb 12.0 (11.5-15.4) g/dL Hct 37.3 (35.3-44.9) % MCV 97.4 (83.0-100.0) fL MCH 31.3 (28.0-33.3) pg MCHC 32.2 (31.6-35.5) g/dL RDW 13.5 (11.5-14.5) % Plt Count 372 (140-400) K/mcL MPV 10.0 (9.4-12.4) fL Immature Gran % 0.2 (0-4) % Seg Neutrophils % 78.5 % Lymphocytes % 13.5 % Monocytes % 6.5 % Eosinophils % 0.8 % Basophils % 0.5 % Neutrophils # 8.2 (1.6-8.9) K/mcL Lymphocytes # 1.4 (0.6-4.6) K/mcL Monocytes # 0.7 (0.0-1.3) K/mcL Eosinophils # 0.1 (0.0-0.6) K/mcL Basophils # 0.1 (0.0-0.2) K/mcL PT 28.3 H (9.4-12.1) Seconds INR 2.5 APTT 46.8 H (26.0-36.0) Seconds Sodium (136-145) mEq/L Potassium (3.5-5.1) mEq/L Chloride (98-107) mEq/L Carbon Dioxide (23-29) mEq/L BUN (8-23) mg/dL Creatinine (0.60-1.20) mg/dL Est GFR ( Amer) (> 60) Est GFR (Non-Af Amer) (> 60) BUN/Creatinine Ratio (6-26) Glucose (70-105) mg/dL Calculated Osmolality (280-300) Lactic Acid (0.5-2.2) mmol/L Calcium (8.6-10.3) mg/dL Total Bilirubin (0.3-1.0) mg/dL Direct Bilirubin (0.0-0.2) mg/dL Indirect Bilirubin (0.0-1.2) mg/dL AST (13-39) Units/L ALT (7-52) Units/L Alkaline Phosphatase (34-104) Units/L Troponin I (< 0.04) ng/mL Serum Total Protein (6.4-8.9) g/dL Albumin (3.5-5.7) g/dL Globulin (2.4-3.5) g/dL Albumin/Globulin Ratio (1.1-2.2) Lipase (11-82) Units/L Stool Occult Bld Scrn Positive A (Negative) Blood Type Antibody Screen 01/17/18 01/17/18 01/17/18 Range/Units 11:48 11:48 11:50 WBC (4.3-11.1) K/mcL RBC (3.82-4.97) M/mcL Hgb (11.5-15.4) g/dL Hct (35.3-44.9) % MCV (83.0-100.0) fL MCH (28.0-33.3) pg MCHC (31.6-35.5) g/dL RDW (11.5-14.5) % Plt Count (140-400) K/mcL MPV (9.4-12.4) fL Immature Gran % (0-4) % Seg Neutrophils % % Lymphocytes % % Monocytes % % Eosinophils % % Basophils % % Neutrophils # (1.6-8.9) K/mcL Lymphocytes # (0.6-4.6) K/mcL Monocytes # (0.0-1.3) K/mcL Eosinophils # (0.0-0.6) K/mcL Basophils # (0.0-0.2) K/mcL PT (9.4-12.1) Seconds INR APTT (26.0-36.0) Seconds Sodium 135 L (136-145) mEq/L Potassium 4.3 (3.5-5.1) mEq/L Chloride 103 (98-107) mEq/L Carbon Dioxide 23 (23-29) mEq/L BUN 37 H (8-23) mg/dL Creatinine 1.17 (0.60-1.20) mg/dL Est GFR ( Amer) 54 L (> 60) Est GFR (Non-Af Amer) 44 L (> 60) BUN/Creatinine Ratio 32 H (6-26) Glucose 140 H (70-105) mg/dL Calculated Osmolality 291 (280-300) Lactic Acid 1.6 (0.5-2.2) mmol/L Calcium 9.3 (8.6-10.3) mg/dL Total Bilirubin 0.5 (0.3-1.0) mg/dL Direct Bilirubin 0.0 (0.0-0.2) mg/dL Indirect Bilirubin 0.5 (0.0-1.2) mg/dL AST 16 (13-39) Units/L ALT 10 (7-52) Units/L Alkaline Phosphatase 93 (34-104) Units/L Troponin I < 0.03 (< 0.04) ng/mL Serum Total Protein 7.3 (6.4-8.9) g/dL Albumin 4.0 (3.5-5.7) g/dL Globulin 3.3 (2.4-3.5) g/dL Albumin/Globulin Ratio 1.2 (1.1-2.2) Lipase 10 L (11-82) Units/L Stool Occult Bld Scrn (Negative) Blood Type O POSITIVE Antibody Screen NEGATIVE 01/17/18 01/17/18 Range/Units 16:45 16:45 WBC (4.3-11.1) K/mcL RBC (3.82-4.97) M/mcL Hgb 10.4 L D (11.5-15.4) g/dL Hct 32.5 L (35.3-44.9) % MCV (83.0-100.0) fL MCH (28.0-33.3) pg MCHC (31.6-35.5) g/dL RDW (11.5-14.5) % Plt Count (140-400) K/mcL MPV (9.4-12.4) fL Immature Gran % (0-4) % Seg Neutrophils % % Lymphocytes % % Monocytes % % Eosinophils % % Basophils % % Neutrophils # (1.6-8.9) K/mcL Lymphocytes # (0.6-4.6) K/mcL Monocytes # (0.0-1.3) K/mcL Eosinophils # (0.0-0.6) K/mcL Basophils # (0.0-0.2) K/mcL PT (9.4-12.1) Seconds INR APTT (26.0-36.0) Seconds Sodium (136-145) mEq/L Potassium (3.5-5.1) mEq/L Chloride (98-107) mEq/L Carbon Dioxide (23-29) mEq/L BUN (8-23) mg/dL Creatinine (0.60-1.20) mg/dL Est GFR ( Amer) (> 60) Est GFR (Non-Af Amer) (> 60) BUN/Creatinine Ratio (6-26) Glucose (70-105) mg/dL Calculated Osmolality (280-300) Lactic Acid (0.5-2.2) mmol/L Calcium (8.6-10.3) mg/dL Total Bilirubin (0.3-1.0) mg/dL Direct Bilirubin (0.0-0.2) mg/dL Indirect Bilirubin (0.0-1.2) mg/dL AST (13-39) Units/L ALT (7-52) Units/L Alkaline Phosphatase (34-104) Units/L Troponin I < 0.03 (< 0.04) ng/mL Serum Total Protein (6.4-8.9) g/dL Albumin (3.5-5.7) g/dL Globulin (2.4-3.5) g/dL Albumin/Globulin Ratio (1.1-2.2) Lipase (11-82) Units/L Stool Occult Bld Scrn (Negative) Blood Type Antibody Screen Attestation Statement - Attestation Attestation: I, Marcel Walker, examined this patient and my medical decision-making was reviewed with the WEB APPLICATIONS ARCHITECT/PA/Advanced Practice Nurse/Resident Physician. I agree with the documented findings, disposition and treatment plan as described except to the extent set forth below. 82-year-old female presents emergency Department with concerns of abdominal pain , melena and weakness and fatigue. Patient states she has been increasingly weak and fatigued over the past few days. Patient reports multiple episodes of dark stool over the past 24 hours. Patient has severe abdominal pain on initial presentation. She is tachycardic however she is also significantly hypertensive. Patient states that she often becomes hypertensive with pain. Patient had tenderness to palpation of the generalized abdomen with moderate guarding without evidence of rigidity or rebound. Event. Denies chest pain, shortness of breath. CT shows colitis. Patient started on Cipro and Flagyl in the emergency department. Patient heart rate improved with IV fluids. She is not significantly anemic. She is comfortable with the plan for admission to hospital for further care and evaluation.
--- NOTE | 2018-01-17 14:53 | Internal Med History&Physical ---
Date of Encounter: 01/17/18 Time of Encounter: 14:47 Internal Medicine - H&P: HPI History of present illness: Ms. Welch is a 82 year old female with history of COPD, hypertension and previous UT presented for onset of abdominal pain for 5 days. She had nausea as well and complaints of black stools for several weeks. She was set to have a colonoscopy in 3 weeks. She also complains of chest pain and weakness. She denies fevers and chills. She has been treated in past month for chest congestion/respiratory infection. She also complained of liquid stools, denies any episodes of constipation. She had CT abdomen and pelvis in ED showing colitis. She had an EKG which showed tachycardia and possible ST depressions. Initial troponin is negative. INR is 2.5 and H&H was stable at 12. At bedside she complains of persisting abdominal discomfort. Past Med Surg Social Fam HX - Past Medical History Medical history: COPD, fibromyalgia, hypertension, myocardial infarction, osteoporosis Additional medical history: portein S defecincy Psychiatric history: anxiety, depression - Past Surgical History Surgical History: appendectomy, cholecystectomy, hysterectomy Additional surgical history: LCEA - Social History Smoking Status: Former smoker Smokeless Tobacco Status: No Alcohol use: none Drug use: none - Family History Father Living Status: Internal Medicine - H&P: Meds HYDROcodone/Acet 10/325 mg [[place] 10-325 mg] 1 tab PO Q4HR PRN 07/09/17 [History ] Levothyroxine [Synthroid] 50 mcg PO 0630 07/09/17 [History] Losartan [Cozaar] 100 mg PO DAILY 07/09/17 [History] Warfarin [Coumadin] 3 mg PO 1800 07/09/17 [History] Citalopram Hydrobromide [Citalopram HBr] 60 mg PO DAILY 07/10/17 [History] Meloxicam 7.5 tab PO BID 07/10/17 [History] Metoprolol [Lopressor] 150 mg PO BID 07/10/17 [History] Azithromycin [Azithromycin 6-Tab Pack] 250 mg PO PER PKG DI 01/17/18 [History] Promethazine [Phenergan] 12.5 mg PO Q6HR 01/17/18 [History] 3 Allergy/AdvReac Type Severity Reaction Status Date / Time Erythromycin Base Allergy Mild Rash Verified 01/17/18 14:02 nitrofurantoin Allergy Mild Vomiting Verified 01/17/18 14:02 [From Macrobid] Oxycodone [From Percocet] Allergy Mild See Verified 01/17/18 14:02 Comments Sulfa (Sulfonamide Allergy Mild Hives Verified 01/17/18 14:02 Antibiotics) All Systems PM: A 10-system review of systems was performed and is negative for pertinent findings except as documented above in the HPI. - Constitutional Constitutional: fatigue, lethargy, no fever(s) - EENT Eyes: no change in vision, no discharge, no pain, no photophobia Ears: no ear discharge, no ear pain, no tinnitus Nose, mouth and throat: no dysphagia, no nasal discharge, no neck pain, no sore throat - Cardiovascular Cardiovascular ROS IM: chest pain (States "congestion") - Respiratory Respiratory: cough, dyspnea, wheezing - Gastrointestinal Gastrointestinal: abdominal pain, change in stool character, melena, nausea, vomiting, no coffee ground emesis, no constipation, no hematemesis, no hematochezia - Genitourinary Genitourinary: no change in urinary stream, no dysuria, no flank pain, no hematuria - Musculoskeletal Musculoskeletal ROS IM: no numbness, no tingling - Integumentary Integumentary IM: no rash, no unusual bruising - Neurological Neurological ROS: no confusion, no convulsions, no focal weakness, no numbness, no tingling, no tremor(s) - Constitutional Vitals: Temp Pulse Resp BP Pulse Ox 98.5 F 105 20 191/115 100 01/17/18 11:46 01/17/18 14:30 01/17/18 14:30 01/17/18 14:30 01/17/18 14:30 General appearance: Present: mild distress (d), A&O X 3 - Head Head exam: Present: atraumatic, normocephalic - Eye Eye exam: Present: PERRL, conjuntiva pink, sclera anicteric Pupils: Present: PERRL - Neck Neck exam general surgery: Present: supple, trachea midline. Absent: lymphadenopathy - Respiratory Respiratory exam: Present: decreased breath sounds, prolonged expiratory phase, wheezes. Absent: accessory muscle use, rales, rhonchi - Cardiovascular Cardiovascular exam: Present: RRR, +S1, +S2. Absent: diastolic murmur, gallop, rubs, systolic murmur - GI/Abdominal GI/Abdominal exam: Present: normal bowel sounds, soft, tenderness, no peritoneal signs. Absent: distended - Extremities Exam Extremities exam: Present: warm, radial pulses palpable and symmetrical. Absent : calf tenderness, cyanotic, pedal edema - Neurological Exam Neurological exam: Present: CN II-XII intact, oriented X3, no focal deficits. Absent: pronater drift, facial droop, speech deficit - Skin Skin exam: Present: dry, intact Internal Med - H&P Results - Labs CBC & Chem 7: 01/17/18 11:48 01/17/18 11:48 Labs: Short CBC 01/17/18 Range/Units 11:48 WBC 10.5 (4.3-11.1) K/mcL Hgb 12.0 (11.5-15.4) g/dL Hct 37.3 (35.3-44.9) % Plt Count 372 (140-400) K/mcL Neutrophils # 8.2 (1.6-8.9) K/mcL BMP 01/17/18 11:48 Sodium 135 L Potassium 4.3 Chloride 103 Carbon Dioxide 23 BUN 37 H Creatinine 1.17 Glucose 140 H Calcium 9.3 Cardiac Enzymes 01/17/18 Range/Units 11:48 Troponin I < 0.03 (< 0.04) ng/mL Liver Function 01/17/18 Range/Units 11:48 Total Bilirubin 0.5 (0.3-1.0) mg/dL Direct Bilirubin 0.0 (0.0-0.2) mg/dL AST 16 (13-39) Units/L ALT 10 (7-52) Units/L Alkaline Phosphatase 93 (34-104) Units/L Albumin 4.0 (3.5-5.7) g/dL - Impressions ITS Impressions Abdomen/Pelvis CT 01/17/18 11:39 IMPRESSION: 1. Findings suggest antral gastritis. In addition, appearance of the transverse colon suggests possible colitis 2. Nonobstructing nephrolithiasis D/ / Addison Oh MD / Addison Oh MD Interpreting Provider: Addison Oh MD - Assessment and plan (1) Acute colitis Current Visit: Yes Status: Acute Assessment and plan: Continue Cipro/Flagyl Concern for C diff colitis based on CT findings and also recent antibiotic treatment. Flagyl IV covers, but if positive then transition to oral vancomycin Stool studies NPO except meds, advance diet as tolerated. (2) GI bleed Current Visit: Yes Status: Acute Assessment and plan: Complains of liquid stool with some dark color in it. CT abdomin pelvis showed both colitis and antral gastritis. She is hypertensive and tachycardic, hemoglobin within normal limits, does not suggest acute bleed at this moment but needs close monitoring Hold coumadin Cycle H&H Carafate IV protonix BID Qualifiers: GI bleed type/associated pathology: unspecified gastrointestinal hemorrhage type Qualified Code(s): K92.2 - Gastrointestinal hemorrhage, unspecified (3) Chest pain Current Visit: No Status: Acute Assessment and plan: EKG showed possible ST depression. Patient states this is more of a congestion sensations. There may be a component of demand ischemia vs a bronchitis. Continue antibiotics, add Prednisone. Cycle troponin and closely monitor. Repeat EKG in AM. Qualifiers: Chest pain type: unspecified Qualified Code(s): R07.9 - Chest pain, unspecified (4) Acute gastritis Current Visit: Yes Status: Acute Assessment and plan: Plan as above. Add IV protonix advance diet as tolerated. Stop Mobic Will cycle H&H and consult GI. Services not available over the weekend. No suspicion for acute bleed. Qualifiers: Gastritis type: unspecified gastritis Gastritis bleeding: presence of bleeding unspecified Qualified Code(s): K29.00 - Acute gastritis without bleeding (5) Coronary artery disease Current Visit: Yes Status: Acute Qualifiers: Coronary Disease-Associated Artery/Lesion type: unspecified vessel or lesion type [place] vs. transplanted heart: [place] heart Associated angina: angina presence unspecified Qualified Code(s): I25.10 - Atherosclerotic heart disease of [place] coronary artery without angina pectoris (6) Acute exacerbation of chronic obstructive pulmonary disease (COPD) Current Visit: No Status: Acute Assessment and plan: Patient has mild resp distress and tight breath sounds with wheezing. She needs low dose steroids but need to avoid worsening gastritis. Will give Prednisone with IV protonix. (7) CKD (chronic kidney disease) Current Visit: No Status: Acute Assessment and plan: Renally dose medications. Qualifiers: Chronic kidney disease stage: unspecified stage Qualified Code(s): N18.9 - Chronic kidney disease, unspecified (8) HTN (hypertension) Current Visit: No Status: Chronic Assessment and plan: Resume metoprolol and Cozaar. Patient currently hypertensive. Qualifiers: Hypertension type: essential hypertension Qualified Code(s): I10 - Essential (primary) hypertension (9) Hypothyroidism Current Visit: No Status: Chronic Assessment and plan: Resume home medications. Qualifiers: Hypothyroidism type: unspecified Qualified Code(s): E03.9 - Hypothyroidism , unspecified - Time Spent With Patient Total time spent is greater than 50% in coordination of care (as documented) at patient's floor/unit and/or counseling patient:
[2018-01-17] MEDS ORDERED: Acetaminophen 325 MG TABLET PO PRN (15:09)
[2018-01-17] MEDS ORDERED: Naloxone 0.4 MG/ML INJ IVP PRN (15:09)
[2018-01-17] MEDS ORDERED: predniSONE 20 MG TABLET PO ONE (15:18)
[2018-01-17] MEDS ORDERED: *HR* Metoprolol 5 MG/5 ML VIAL IVP PRN (15:21)
[2018-01-17] MEDS ORDERED: Ondansetron 4 MG/2 ML VIAL IVP ONE (15:21)
[2018-01-17] MEDS: MetroNIDAZOLE 500 MG/100 ML 500 MG/100 ML BAG IVPB SCH ×2 (16:40→23:47)
[2018-01-17] MEDS: Sucralfate 1 GM TABLET PO SCH ×2 (16:41→23:47)
[2018-01-17 17:23] LABS: Hematocrit 32.5 % (35.3-44.9); Hemoglobin 10.4 g/dL (11.5-15.4)
[2018-01-17] MEDS: Ipratropium/Albuterol Neb 3 ML IH SCH ×3 (20:18→23:58)
[2018-01-17 20:42] LABS: Hematocrit 34.7 % (35.3-44.9); Hemoglobin 11.4 g/dL (11.5-15.4)
[2018-01-17] MEDS: Ringers Solution, Lactated 1,000 ML IVC SCH (21:57)
[2018-01-17] MEDS: Pantoprazole 40 MG VIAL IVP SCH (22:16)
[2018-01-17] MEDS: *HR* HYDROcodone/Acet 10/325 mg TABLET PO PRN (23:49)
[2018-01-18] MEDS: Ipratropium/Albuterol Neb 3 ML IH SCH ×6 (04:11→23:36)
[2018-01-18] MEDS: Pantoprazole 40 MG VIAL IVP SCH ×2 (05:52→17:12)
[2018-01-18] MEDS: *HR* HYDROcodone/Acet 10/325 mg TABLET PO PRN ×4 (05:52→23:47)
--- NOTE | 2018-01-18 07:38 | Electrocardiograph Report ---
[place] [id number] Test Date: 2018-01-17 Pat Name: Gloria Welch Department: 104 Room: 3A22 Gender: F [employer]: : 1935 Requested By: Marcel Walker Order Number: [id number] Reading MD: Carl Bhatt Measurements Intervals [place] Rate: 121 P: 85 OR: 146 QRS: 67 QRSD: 80 T: 56 QT: 310 QTc: 382 Interpretive Statements SINUS TACHYCARDIA NONSPECIFIC ST-T CHANGES Electronically Signed On 01-18-2018 7:36:26 EDT by Carl Bhatt
[2018-01-18 08:12] LABS: Basophils % 0.2 %; Eosinophils % 0.2 %; Hematocrit 34.7 % (35.3-44.9); Hemoglobin 11.2 g/dL (11.5-15.4); Immature Granulocytes % 0.5 % (0-4); Lymphocytes # 0.6 K/mcL (0.6-4.6); Lymphocytes % 11.6 %; Mean Corpuscular HGB Conc 32.3 g/dL (31.6-35.5); Mean Corpuscular Hemoglobin 30.9 pg (28.0-33.3); Mean Corpuscular Volume 95.9 fL (83.0-100.0); Mean Platelet Volume 10.8 fL (9.4-12.4); Monocytes # 0.2 K/mcL (0.0-1.3); Neutrophils # 4.6 K/mcL (1.6-8.9); Platelet Count 303 K/mcL (140-400); Red Blood Count 3.62 M/mcL (3.82-4.97); Red Cell Distribution Width 13.5 % (11.5-14.5); Segmented Neutrophils % 83.5 %
[2018-01-18 08:19] LABS: INR 2.6; Prothrombin Time 29.3 Seconds (9.4-12.1)
[2018-01-18 08:33] LABS: BUN/Creatinine Ratio 23 (6-26); Blood Urea Nitrogen 21 mg/dL (8-23); Calcium 9.3 mg/dL (8.6-10.3); Carbon Dioxide 25 mEq/L (23-29); Chloride 104 mEq/L (98-107); Glucose 149 mg/dL (70-105); Osmolality,Calculated 284 (280-300); Potassium 5.3 mEq/L (3.5-5.1); Sodium 134 mEq/L (136-145); eGFR For African Americans > 60 (> 60); eGFR For Non-African Americans > 60 (> 60)
[2018-01-18] MEDS: predniSONE 20 MG TABLET PO SCH (09:51)
[2018-01-18] MEDS: Sucralfate 1 GM TABLET PO SCH ×4 (09:51→21:16)
[2018-01-18] MEDS: MetroNIDAZOLE 500 MG/100 ML 500 MG/100 ML BAG IVPB SCH ×3 (09:53→23:40)
--- NOTE | 2018-01-18 22:38 | Internal Med Progress Note ---
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 The patient feels better. Her epigastric pain is nearly gone. Denies nausea and vomiting. He tolerates the clear liquids. Denies chest pain. Denies difficulty breathing, coughing and wheezing. He makes fair amounts of urine. OBJECTIVE: .. Skin: Free of rash and discoloration. ENMT: Oral/pharyngeal mucosa is normal in appearance. Eyes: Sclera is white. There is no discharge from eyes. Respiratory: Normal breath sounds; no crackles or wheezes. CV: Heart is regular; no gallop or murmur. GI: Abdomen is soft and not tender. There is no palpable mass or visceromegaly. Neuro: There is no focal deficits. ASSESSMENT AND PLAN: .. Acute colitis, likely viral. CT of abdomen and pelvis that shows changes typical for colitis in the transverse colon. Will continue IV Cipro and IV Flagyl. Will advance her diet to full liquids. Her stool was heme positive. We did not see any gross GI bleeding. Her hemoglobin is stable. Protein S deficiency. I am going to restart her Coumadin tomorrow, assuming that she does not have any gross GI bleed. Hypertension. Under control. We will continue Lopressor and Cozaar. - Constitutional Vitals: Temp Pulse Resp BP Pulse Ox 97.8 F 90 16 113/54 100 01/18/18 19:38 01/18/18 19:38 01/18/18 19:59 01/18/18 19:38 01/18/18 19:59 General appearance: Present: mild distress (d), A&O X 3 Internal Medicine: Result - Labs CBC & Chem 7: 01/18/18 07:38 01/18/18 07:38 Labs: Short CBC 01/18/18 Range/Units 07:38 WBC 5.5 (4.3-11.1) K/mcL Hgb 11.2 L (11.5-15.4) g/dL Hct 34.7 L (35.3-44.9) % Plt Count 303 (140-400) K/mcL Neutrophils # 4.6 (1.6-8.9) K/mcL BMP 01/18/18 07:38 Sodium 134 L Potassium 5.3 H Chloride 104 Carbon Dioxide 25 BUN 21 Creatinine 0.90 Glucose 149 H Calcium 9.3 - ABG Interpretation ABG results: PT/INR, D-dimer PT 29.3 Seconds (9.4-12.1) H 01/18/18 07:38 - Impressions Impressions Echocardiogram 01/18/18 15:20 Impressions: LVEF 60%. Mild left ventricular diastolic dysfunction. Normal right ventricular structure and function. Mild tricuspid regurgitation. No pulmonary hypertension. Left Ventricular Wall Motion: Rest Echo Findings All wall segments showed normal motion. Findings: Study Quality * Technically adequate exam. ECG Findings * Normal sinus rhythm. Left Ventricle * LVEF 60%. * Mild left ventricular diastolic dysfunction. * Normal LV chamber size and wall thickness. Right Ventricle * Normal right ventricular structure and function. Left Atrium * Moderately dilated left atrium. Right Atrium * Normal right atrial size. Aortic Valve * No aortic regurgitation. * Trileaflet aortic valve. * No aortic stenosis. Mitral Valve * No mitral regurgitation. * Normal mitral valve structure. * No mitral stenosis. Tricuspid Valve * Tricuspid valve not well visualized. * Mild tricuspid regurgitation. * Estimated RA pressure is 3 mmHg. * Estimated RVSP is 30 mmHg. Pulmonic Valve * Pulmonic valve is not well visualized. * No pulmonic stenosis. * Trace pulmonic regurgitation. Pulmonary Artery * Pulmonary artery not well visualized. Aorta * Normally sized aortic root. Pericardium * There is no pericardial effusion present. Interatrial Septum * No evidence of PFO by color Doppler. IVC * Normal IVC dimensions and inspiratory collapse. Consult Discharge Plan - Plan Referrals: Luis Angel Mello Jr, MD [Primary Care Provider] -
[2018-01-18] MEDS: Ringers Solution, Lactated 1,000 ML IVC SCH (23:47)
[2018-01-19] MEDS: Ipratropium/Albuterol Neb 3 ML IH SCH ×3 (03:58→11:08)
[2018-01-19] MEDS: Pantoprazole 40 MG VIAL IVP SCH ×2 (05:30→17:36)
[2018-01-19] MEDS: predniSONE 20 MG TABLET PO SCH (09:44)
[2018-01-19] MEDS: MetroNIDAZOLE 500 MG/100 ML 500 MG/100 ML BAG IVPB SCH ×2 (09:44→17:36)
[2018-01-19] MEDS: Sucralfate 1 GM TABLET PO SCH ×3 (09:47→17:36)
[2018-01-19 14:46] VITALS: BP 94/53
[2018-01-19] MEDS ORDERED: Ipratropium/Albuterol Neb 3 ML IH PRN (14:50)
--- NOTE | 2018-01-19 16:13 | Discharge Summary ---
- NOTES TO OUTPATIENT PROVIDER Notes to Outpatient Provider: The patient is to get her colonoscopy; was scheduled before this hospitalization. Date of Encounter: 01/19/18 Time of Encounter: 16:11 - Discharge Diagnosis (1) Acute colitis Priority: Primary Status: Acute (2) GI bleed Priority: Secondary Status: Acute Qualifiers: GI bleed type/associated pathology: unspecified gastrointestinal hemorrhage type Qualified Code(s): K92.2 - Gastrointestinal hemorrhage, unspecified (3) Protein S deficiency Priority: Secondary Status: Chronic (4) HTN (hypertension) Priority: Secondary Status: Chronic Qualifiers: Hypertension type: essential hypertension Qualified Code(s): I10 - Essential (primary) hypertension Hospital course: Ms. Welch is a 82 year old female. The patient was admitted to the hospital with diffuse abdominal pain of about 5 days' duration. Associated with off and on liquid stool. She mentioned to us having black stools in the last several weeks. It prompted her PCP to schedule her for colonoscopy. It is supposed to happen in a few weeks. Her physical exam at admission was relatively benign. CT of abdomen and pelvis showed features of colitis in the transverse colon. Her first CBC showed hemoglobin of 12.0 with WBC of 10.5. We put her on clear liquids. We started her on IV Cipro/IV Flagyl. We stopped her warfarin (she has underlying protein S deficiency). Her abdominal pain subsided quickly. We did is see her any significant GI bleeding. Her hemoglobin at discharge was 11.2 (with WBC of 5.5 thousand). Condition at discharge: She is on a regular diet. Denies abdominal pain, nausea and vomiting. She has not had any bowel movements for the last several hours. The patient will continue Cipro and Flagyl for the next 7 days. She will have her scheduled colonoscopy in 3 weeks. Discharge discussed with: patient, nurse - Time Spent with Patient Total time spent providing and/or coordinating discharge services: Greater than 30 minutes - Discharge Medications Prescriptions: metroNIDAZOLE [Flagyl] 500 mg PO Q8HR 7 Days #21 tablet Ciprofloxacin [Cipro] 500 mg PO BID 7 Days #14 tablet Home Medications: HYDROcodone/Acet 10/325 mg [[place] 10-325 mg] 1 tab PO Q4HR PRN 07/09/17 [History ] Levothyroxine [Synthroid] 50 mcg PO 0630 07/09/17 [History] Losartan [Cozaar] 100 mg PO DAILY 07/09/17 [History] Citalopram Hydrobromide [Citalopram HBr] 60 mg PO DAILY 07/10/17 [History] Meloxicam 7.5 tab PO BID 07/10/17 [History] Metoprolol [Lopressor] 150 mg PO BID 07/10/17 [History] Acetaminophen [Tylenol] 650 mg PO Q6HR PRN tablet 01/19/18 [Rx] Ciprofloxacin [Cipro] 500 mg PO BID 7 Days #14 tablet 01/19/18 [Rx] Warfarin [Coumadin] 3 mg PO 1800 #30 01/19/18 [Rx] metroNIDAZOLE [Flagyl] 500 mg PO Q8HR 7 Days #21 tablet 01/19/18 [Rx] Allergies/Adverse Reactions: 3 Allergy/AdvReac Type Severity Reaction Status Date / Time Erythromycin Base Allergy Mild Rash Verified 01/17/18 14:02 nitrofurantoin Allergy Mild Vomiting Verified 01/17/18 14:02 [From Macrobid] Oxycodone [From Percocet] Allergy Mild See Verified 01/17/18 14:02 Comments Sulfa (Sulfonamide Allergy Mild Hives Verified 01/17/18 14:02 Antibiotics) Date of admission: 01/17/18 17:16 Primary care physician: Luis Angel Mello Jr, MD Discharging clinician: William Hurtado Anticipated date of discharge: 01/19/18 - Constitutional Vitals: Temp Pulse Resp BP Pulse Ox 97.6 F 89 14 94/53 90 01/19/18 14:42 01/19/18 14:42 01/19/18 14:42 01/19/18 14:42 01/19/18 14:42 General appearance: Present: mild distress (d), A&O X 3 - Respiratory Respiratory exam: Present: CTAB. Absent: accessory muscle use, rales, rhonchi, wheezes - Cardiovascular Cardiovascular exam: Present: RRR, +S1, +S2. Absent: diastolic murmur, gallop, rubs, systolic murmur - GI/Abdominal GI/Abdominal exam: Present: normal bowel sounds, soft, no peritoneal signs. Absent: distended, tenderness - Patient Status Disposition: Home, Self-Care Condition: Good Overall status at discharge: patient is back to baseline - Discharge Instructions Follow Up With: Luis Angel Mello Jr, MD [Primary Care Provider] - Forms: ED Satisfaction Letter, Work/School Release - Diet and Activity Activity: resume usual activities as tolerated Diet: advance to your usual diet - VTE Reasons for not Prescribing Prophylaxis: Not indicated-Anticoagulated or INR therapeutic Deep Vein Thrombosis/Pulmonary Embolism Present on Admission: No
[2018-01-19] MEDS ORDERED: *HR* Warfarin 3 MG TABLET PO SCH (18:00)
== END 2018-01-19 20:17 | disposition home or self-care (01) | DRG 392 ==
LOC: EMEROO 11:26 → SUATTDRO 17:16 → 3ANU 17:16
PROVIDERS: ADMIT Student in an Organized Health Care Education/Training Program; ATTEND Internal Medicine